=== PATIENT | female | born 1970 | race Caucasian/White ===

== ENCOUNTER 2020-01-28 15:53 | Outpatient (REF) | payer OTHER, SELFPAY ==
[2020-01-28 16:34] LABS: COVID-19 Test Negative (Negative)
== END 2020-01-28 15:54 | disposition home or self-care (01) ==
LOC: HO.LAB 15:53
PROVIDERS: Visit Provider Internal Medicine
DX: Z20.828 Contact with and (suspected) exposure to other viral communicable diseases (principal)
CPT/HCPCS: 87635

== ENCOUNTER 2020-02-06 10:41 | Outpatient (REF) | payer OTHER, SELFPAY ==
[2020-02-06 11:00] LABS: COVID-19 Test Negative (Negative)
== END 2020-02-06 10:42 | disposition home or self-care (01) ==
LOC: HO.LAB 10:41
PROVIDERS: Visit Provider Internal Medicine
DX: Z20.828 Contact with and (suspected) exposure to other viral communicable diseases (principal)
CPT/HCPCS: 87635

== ENCOUNTER 2020-04-01 13:28 | Outpatient (REF) | payer OTHER, SELFPAY ==
--- NOTE | 2020-04-01 13:33 | MM_ITS ---
EXAMINATION: MM SCREENING DIGITAL BREAST TOMOSYNTHESIS, BILATERAL CLINICAL INFORMATION: Screening. Asymptomatic. The lifetime risk of breast cancer based on the Tyrer-Cuzick Model is 8%. COMPARISON: Mammography: 04/26/2015, 04/26/2014 TECHNIQUE: Digital breast tomosynthesis is performed in both the craniocaudal and mediolateral oblique views along with computer-aided detection (CAD). Synthesized 2D images are generated from the tomosynthesis. FINDINGS: There are scattered areas of fibroglandular density (ACR BI-RADS breast composition Category b). There are no significant masses, abnormal calcifications, or other abnormalities. The axilla and skin contours are unremarkable. No significant changes. MM/MM tomosynthesis screening BI IMPRESSION: No significant changes from prior exams. ASSESSMENT: BI-RADS 1: Negative RECOMMENDATION: Routine annual mammography screening. This patient's information was entered into a reminder system with a target due date for their next mammogram.
== END 2020-04-01 13:29 | disposition home or self-care (01) ==
LOC: HO.MAMMO 13:28
PROVIDERS: Visit Provider Obstetrics & Gynecology
DX: Z12.31 Encounter for screening mammogram for malignant neoplasm of breast (principal)
CPT/HCPCS: 77063; 77067

== ENCOUNTER → 2020-09-21 09:59 | Outpatient (BNVA) | payer OTHER, SELFPAY | PROVIDERS: Visit Provider Internal Medicine | DX: Z13.89 Encounter for screening for other disorder (principal) | CPT/HCPCS: 99202 ==

== ENCOUNTER → 2020-09-23 10:26 | Outpatient (BNVA) | payer OTHER, SELFPAY | PROVIDERS: Visit Provider Internal Medicine | DX: Z13.89 Encounter for screening for other disorder (principal) | CPT/HCPCS: 99213 ==

== ENCOUNTER 2020-09-24 06:36 | Emergency (ER) | payer OTHER, SELFPAY ==
[2020-09-24 06:43] VITALS: BP 140/62; PULSE 82; RESP 15; TEMP 36.5; O2SAT 98; BMI 86.3
--- NOTE | 2020-09-24 07:08 | ED_ITS ---
HPI - Back Pain/Injury General Chief Complaint: Back Pain/Injury Stated Complaint: back pain Time Seen by Provider: 09/24/20 06:48 Source: patient Mode of arrival: ambulatory Limitations: no limitations History of Present Illness HPI Narrative: 49-year-old female who presents emergency department for evaluation of right lower back pain, right knee numbness and right leg weakness. 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 She was working on Saturday (5 days prior to evaluation) she was at work, walking up stairs when she tripped and fell. She states she did not fall but was able to catch herself. She states that she developed immediate pain in her lower back. She describes the pain is a burning sensation which is been constant. The pain travels down the right inner thigh to the knee. She states that her right knee feels numb. She states that the pain also has a spasm component and the pain is 8/10. The patient was seen at [facility] and was started on a Medrol Dosepak. She took that for 3 days it did not seem to help her pain so she was advised to stop this medication. She has been taking naproxen and Tylenol with minimal relief of her pain. Patient states that yesterday, while going up some stairs her right leg knee was weak and gave out on her and she fell sustaining only minor injuries. The [facility] provider wanted to get an MRI however the MRI at our institution was out of order. Patient states that she continues have weakness and numbness of her right leg and her back pain is 8/10, therefore she came to the emergency department for evaluation. She denies other illness such as fever, chills, chest pain, shortness of breath, cough, abdominal pain, change in her urine. She has had no loss of bowel or bladder control. 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 Past surgical history: . 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 She denies tobacco, alcohol and drug use. Medical History (Updated 09/24/20 @ 10:51 by Kevin Kwon MD) Minerva's thyroiditis Surgical History (Updated 09/24/20 @ 06:49 by Misa Stephenson) No history of previous surgery Social History Social History Alcohol intake: never Patient Tobacco Use Status: Never used Tobacco Use of substances other than those prescribed or required for medical reasons: No Advance Directives: No Advance Directives Information Provided: No Patient : No Physical Exam Vital Signs: Vital Signs: Last Vital Signs Temp 97.7 F 09/24/20 06:43 Pulse 82 09/24/20 06:43 Resp 15 09/24/20 06:43 BP 140/62 H 09/24/20 06:43 Pulse Ox 98 09/24/20 06:43 Body Mass Index 86.3 Const: Other: Very pleasant and cooperative female, answers all questions appropriately, does not appear to be in significant distress but does have difficulty moving secondary to her back pain Orientation/consciousness: oriented to person Limitations: no limitations HENMT: Head: Yes normal to inspection, Yes normocephalic and Yes atraumatic Ears: external ears normal General nose exam: Normal external nose present Face and sinus: Yes normal facial exam Mouth: Normal oral and palatal mucosa present Throat: Yes posterior oropharynx normal Eyes: Periorbital: periorbital findings normal Eyelids: Yes eyelids normal Conjunctivae: conjunctivae normal Sclerae: sclerae normal Corneas: corneas normal Pupils: Equal, round and reactive pupils present Direct Ophthalmoscopy: normal light reflex Neck: Neck: Yes full ROM, Yes no lymphadenopathy, Yes no meningeal signs, Yes trachea midline and Yes supple Chest: Chest palpation & inspection: normal inspection of the chest and normal palpation of entire chest wall Resp: Effort & Inspection: normal respiratory effort and able to speak in complete sentences Auscultation: clear to auscultation bilaterally Cardio: Rate: regular rate Rhythm: regular rhythm Heart sounds: S1 normal heart sound present, S2 normal heart sound present and no murmurs GI: Inspection: Yes normal to inspection Palpation (GI): Soft to palpation, nontender, no guarding, not rigid and No hepatosplenomegaly present : General: Yes no CVA tenderness Back/Spine/Pelvis: Back: no CVA tenderness Cervical Spine: normal cervical lordosis Thoracic/Lumbar Spine: thoracic and lumbar spine normal to inspection, paraspinal muscle tenderness on the right in the lower lumbar, lumbar spinal tenderness at L3, at L4 and at L5 and straight leg raise positive bilateral Skin: Lesions: no lesions Rashes: no rashes Wounds: no wounds Neuro: Other: Lower extremity reflexes: able to obtain a left patellar reflex only. Patient does have some slight weakness to the right lower extremity compared to the left. General: oriented to person and no meningeal signs Cranial nerves: Yes CN's II-XII intact bilaterally and Yes Equal, round and reactive pupils present Cognition (Neuro): normal cognition Sensory Exam: other (Symmetric light touch) Extrem: General: Yes normal to inspection and Yes full ROM Psych: Appearance: well kempt Mental Status: mental status grossly normal Speech and movement: Normal speech and movement present Affect: normal af fect Attitude: cooperative Thought process: Normal thought process present Thought content: Normal thought content present Course Course Course Narrative: 49-year-old female who presents emergency department for evaluation of work-related back injury with right lower back pain with pain radiating down the right thigh with numbness of the right knee. Patient is also experiencing weakness of the right lower extremity. The patient was initially started on a Medrol Dosepak but this was discontinued. She has been taking Aleve and Flexeril with no relief of her pain. Patient's pain became worse today so she came to the emergency department for evaluation. Physical examination did reveal tenderness with palpation of her lumbar spine and lumbar paraspinal muscles. The patient did have some slight weakness of the right l ower extremity compared to the left. Patient did have positive straight leg raises bilaterally. Differential includes herniated disc, sciatica, inflammation of spinal nerves, musculoskeletal injury. 1043: The patient was treated with Toradol 30 mg IM without any relief the pain. She was then treated with with morphine 4 mg IM x2 and morphine 4 mg IV x1. She is also given Decadron 10 mg IV. The patient states that her pain has improved, her numbness and weakness is unchanged. At this time, we do not have MRI available and I did discuss this with the patient. The patient will be discharged home with a prescription for Decadron 6 mg once a day for 5 days. She was advised to take Tylenol for pain and for pain not relieved by Tylenol she was given a prescription for morphine 15 mg tablets, 1 pill every 4-6 hours as needed for pain. She was given printed and verbal instructions on back pain and discharged home. I did tell or for symptoms got worse, she developed loss of bowel or bladder control that she should go to an emergency department and has the ability to do an urgent MRI. At this time, our MRI scanner is not functioning and may not be repaired until early next week. Discharge Plan Discharge Clinical Impression: Lumbar back pain with radiculopathy affecting right lower extremity Patient Disposition: Home, Self-Care Instructions: Lumbar Radiculopathy (ED) Additional Instructions: Back Pain Discharge Instructions: You received Decadron (dexamethasone) 10 mg IV in the emergency department Tomorrow morning start Decadron (dexamethasone) 6 mg once a day for 5 days. This is a strong, steroid, anti-inflammatory pain medication. Do not take any [id number]-[id number] anti-inflammatory pain medications while you are taking Decadron such as ibuprofen, Motrin, Advil, Aleve, naproxen or aspirin. Take Tylenol(acetaminophen) 325 mg pills, 2 pills every 4 hours as needed for pain. Continue taking Flexeril (cyclobenzaprine) as prescribed by your doctor.This medication will make you sleepy, therefore do not drive or work while taking this medication. For pain not relieved by Flexeril or Tylenol take morphine 15 mg pills, 1 pill every 4-6 hours as needed for pain. This is a narcotic pain medication and can cause addiction. If your concerned about addiction do not get this medication filled or you can ask the pharmacist to give you fever pills than prescribed. Apply ice for 15 minutes to the area that hurts on your back, then apply a heating a pad on low for 15 minutes. Do this 4-6 times a day to help reduce the pain in your back. You can also try over the counter lidocaine patches as directed on the box to help with the pain. If your symptoms get worse or if you develop any new symptoms that are concerning you, call your doctor or return to the emergency department for re- evaluation. Unfortunately however, at this time are MRI is not function and you should return to emergency department that can perform an urgent MRI ([facility] in [place]). Follow up with your doctor in 2 day. Please read the other printed discharge instructions on back pain. Prescriptions: New morphine 15 mg tablet 15 mg PO Q4-6H PRN (Reason: pain) Qty: 14 RF: 0 dexamethasone 6 mg tablet 6 mg PO DAILY 5 Days Qty: 5 RF: 0
[2020-09-24] MEDS: Ketorolac Tromethamine 30 MG/ML VIAL IVPUSH (07:14)
--- NOTE | 2020-09-24 07:26 | PC.NURSE ---
seen by provider, mri machine unavailable d/t out of order. administered im toradol for pain management, will reassess for affect. pt nad in stretcher att.
[2020-09-24] MEDS: Morphine Sulfate 4 MG/ML CARTRIDGE IM ×2 (08:20→08:44)
[2020-09-24] MEDS: Morphine Sulfate 4 MG/ML CARTRIDGE IVPUSH (10:01)
== END 2020-09-24 11:39 | disposition home or self-care (01) ==
PROVIDERS: Emergency Provider Emergency Medicine Emergency Medical Services
DX: M54.16 Radiculopathy, lumbar region (principal); E06.3 Autoimmune thyroiditis; E03.9 Hypothyroidism, unspecified; Z79.899 Other long term (current) drug therapy
CPT/HCPCS: 96374; 96375; 96376; 99284; J1100; J1885; J2270

== ENCOUNTER → 2020-10-03 11:37 | Outpatient (BNVA) | payer OTHER, SELFPAY | PROVIDERS: Visit Provider Internal Medicine | DX: Z13.89 Encounter for screening for other disorder (principal) | CPT/HCPCS: 99213 ==

== ENCOUNTER → 2020-10-20 11:11 | Outpatient (BNVA) | payer OTHER, SELFPAY | PROVIDERS: Visit Provider Internal Medicine | DX: Z13.89 Encounter for screening for other disorder (principal) | CPT/HCPCS: 99213 ==

== ENCOUNTER → 2020-11-07 11:22 | Outpatient (BNVA) | payer OTHER, SELFPAY | PROVIDERS: Visit Provider Physician Assistant | DX: Z13.89 Encounter for screening for other disorder (principal) | CPT/HCPCS: 99213 ==

== ENCOUNTER 2020-11-10 11:00 | Outpatient (RCR) | payer OTHER, SELFPAY ==
--- NOTE | 2020-10-03 16:13 | MHC.PT.EP ---
[facility] [place] Office [place] Office [place] Office [address] Myles Singer [address] [phone] F: [phone] F: [phone] F: [phone] F: [phone] Physical Therapy Plan of Care Date of Evaluation: Date of Surgery: Diagnosis: LBP radiating into RLE Assessment: Pt is a 49yo F who presents with LBP radiating into RLE. She demonstrates current impairments in pain, sensation, strength, endurance, and stability. She finds improvement of symptoms with manual long-axis distraction and prone exercises. Her signs and symptoms may be consistent with lumbar radiculopathy. Her functional limitations include ambulating prolonged distances, prolonged sitting, getting in/out of the car, lifting, and sleeping. She is an excellent candidate for skilled PT services to address the listed impairments to facilitate return to pain-free PLOF. Frequency and Duration: The patient will be seen 2x/week 4 weeks Short Term Goals: Pt will be I with HEP Pt will improve hip ABD and hip ext by 1 grade RLE [facility]ci Goals: Pt will tolerate standing >1 hour with pain < 1/10 Pt will demonstrate full strength and ROM to facilitate return to pain-free ADLs Treatment Plan: Modalities to reduce pain, spasms and effusion. Manual therapy to restore motion and function. Therapeutic exercise to improve strength and flexibility. Neuromuscular re-education for posture and balance. Therapeutic activities to return to functional activities of daily living. Electronically signed by: Allyn Santos, PT, DPT Please sign and return to therapist. Thank you for your referral.
--- NOTE | 2020-10-03 16:14 | MHC.PT.EP ---
[facility] [place] Office [place] Office [place] Office [address] Myles Singer [address] [phone] F: [phone] F: [phone] F: [phone] F: [phone] Physical Therapy Plan of Care Date of Evaluation: Date of Surgery: Diagnosis: LBP radiating into RLE Assessment: Pt is a 49yo F who presents with LBP radiating into RLE. She demonstrates current impairments in pain, sensation, strength, endurance, and stability. She finds improvement of symptoms with manual long-axis distraction and prone exercises. Her signs and symptoms may be consistent with lumbar radiculopathy. Her functional limitations include ambulating prolonged distances, prolonged sitting, getting in/out of the car, lifting, and sleeping. She is an excellent candidate for skilled PT services to address the listed impairments to facilitate return to pain-free PLOF. Frequency and Duration: The patient will be seen 2x/week 4 weeks Short Term Goals: Pt will be I with HEP Pt will improve hip ABD and hip ext by 1 grade RLE Mcc Goals: Pt will tolerate standing >1 hour with pain < 1/10 Pt will demonstrate full strength and ROM to facilitate return to pain-free ADLs Treatment Plan: Modalities to reduce pain, spasms and effusion. Manual therapy to restore motion and function. Therapeutic exercise to improve strength and flexibility. Neuromuscular re-education for posture and balance. Therapeutic activities to return to functional activities of daily living. Electronically signed by: Allyn Santos, PT, DPT Please sign and return to therapist. Thank you for your referral.
--- NOTE | 2020-10-04 09:57 | MHC.PT.EP ---
[facility] [place] Office [place] Office [place] Office [address] Myles Singer [address] [phone] F: [phone] F: [phone] F: [phone] F: [phone] Physical Therapy Plan of Care Date of Evaluation: Date of Surgery: Diagnosis: LBP radiating into RLE Assessment: Pt is a 49yo F who presents with LBP radiating into RLE. She demonstrates current impairments in pain, sensation, strength, endurance, and stability. She finds improvement of symptoms with manual long-axis distraction and prone exercises. Her signs and symptoms may be consistent with lumbar radiculopathy. Her functional limitations include ambulating prolonged distances, prolonged sitting, getting in/out of the car, lifting, and sleeping. She is an excellent candidate for skilled PT services to address the listed impairments to facilitate return to pain-free PLOF. Frequency and Duration: The patient will be seen 2x/week 4 weeks Short Term Goals: Pt will be I with HEP Pt will improve hip ABD and hip ext by 1 grade RLE [facility] Goals: Pt will tolerate standing >1 hour with pain < 1/10 Pt will demonstrate full strength and ROM to facilitate return to pain-free ADLs Treatment Plan: Modalities to reduce pain, spasms and effusion. Manual therapy to restore motion and function. Therapeutic exercise to improve strength and flexibility. Neuromuscular re-education for posture and balance. Therapeutic activities to return to functional activities of daily living. Electronically signed by: Allyn Santos, PT, DPT Please sign and return to therapist. Thank you for your referral.
--- NOTE | 2020-10-04 09:58 | MHC.PT.EP ---
[facility] [place] Office [place] Office [place] Office [address] Myles Singer [address] [phone] F: [phone] F: [phone] F: [phone] F: [phone] Physical Therapy Plan of Care Date of Evaluation: Date of Surgery: Diagnosis: LBP radiating into RLE Assessment: Pt is a 49yo F who presents with LBP radiating into RLE. She demonstrates current impairments in pain, sensation, strength, endurance, and stability. She finds improvement of symptoms with manual long-axis distraction and prone exercises. Her signs and symptoms may be consistent with lumbar radiculopathy. Her functional limitations include ambulating prolonged distances, prolonged sitting, getting in/out of the car, lifting, and sleeping. She is an excellent candidate for skilled PT services to address the listed impairments to facilitate return to pain-free PLOF. Frequency and Duration: The patient will be seen 2x/week 4 weeks Short Term Goals: Pt will be I with HEP Pt will improve hip ABD and hip ext by 1 grade RLE Assisted Goals: Pt will tolerate standing >1 hour with pain < 1/10 Pt will demonstrate full strength and ROM to facilitate return to pain-free ADLs Treatment Plan: Modalities to reduce pain, spasms and effusion. Manual therapy to restore motion and function. Therapeutic exercise to improve strength and flexibility. Neuromuscular re-education for posture and balance. Therapeutic activities to return to functional activities of daily living. Electronically signed by: Allyn Santos, PT, DPT Please sign and return to therapist. Thank you for your referral.
--- NOTE | 2020-10-04 10:05 | MHC.PT.EP ---
[facility] [place] Office [place] Office [address] Myles Singer [address] [phone] F: [phone] F: [phone] F: [phone] F: [phone] Physical Therapy Plan of Care Date of Evaluation: Date of Surgery: Diagnosis: LBP radiating into RLE Assessment: Pt is a 49yo F who presents with LBP radiating into RLE. She demonstrates current impairments in pain, sensation, strength, endurance, and stability. She finds improvement of symptoms with manual long-axis distraction and prone exercises. Her signs and symptoms may be consistent with lumbar radiculopathy. Her functional limitations include ambulating prolonged distances, prolonged sitting, getting in/out of the car, lifting, and sleeping. She is an excellent candidate for skilled PT services to address the listed impairments to facilitate return to pain-free PLOF. Frequency and Duration: The patient will be seen 2x/week 4 weeks Short Term Goals: Pt will be I with HEP Pt will improve hip ABD and hip ext by 1 grade RLE Mcfp Goals: Pt will tolerate standing >1 hour with pain < 1/10 Pt will demonstrate full strength and ROM to facilitate return to pain-free ADLs Treatment Plan: Modalities to reduce pain, spasms and effusion. Manual therapy to restore motion and function. Therapeutic exercise to improve strength and flexibility. Neuromuscular re-education for posture and balance. Therapeutic activities to return to functional activities of daily living. Electronically signed by: Allyn Santos, PT, DPT Please sign and return to therapist. Thank you for your referral.
--- NOTE | 2020-10-04 10:10 | MHC.PT.EP ---
[facility] [place] Office [place] Office [place] Office [address] Myles Singer [address] [phone] F: [phone] F: [phone] F: [phone] F: [phone] Physical Therapy Plan of Care Date of Evaluation: Date of Surgery: Diagnosis: LBP radiating into RLE Assessment: Pt is a 49yo F who presents with LBP radiating into RLE. She demonstrates current impairments in pain, sensation, strength, endurance, and stability. She finds improvement of symptoms with manual long-axis distraction and prone exercises. Her signs and symptoms may be consistent with lumbar radiculopathy. Her functional limitations include ambulating prolonged distances, prolonged sitting, getting in/out of the car, lifting, and sleeping. She is an excellent candidate for skilled PT services to address the listed impairments to facilitate return to pain-free PLOF. Frequency and Duration: The patient will be seen 2x/week 4 weeks Short Term Goals: Pt will be I with HEP Pt will improve hip ABD and hip ext by 1 grade RLE Correction Goals: Pt will tolerate standing >1 hour with pain < 1/10 Pt will demonstrate full strength and ROM to facilitate return to pain-free ADLs Treatment Plan: Modalities to reduce pain, spasms and effusion. Manual therapy to restore motion and function. Therapeutic exercise to improve strength and flexibility. Neuromuscular re-education for posture and balance. Therapeutic activities to return to functional activities of daily living. Electronically signed by: Allyn Santos, PT, DPT Please sign and return to therapist. Thank you for your referral.
--- NOTE | 2020-10-04 10:20 | MHC.PT.EP ---
[facility] [place] Office [place] Office [address] Myles Singer [address] [phone] F: [phone] F: [phone] F: [phone] F: [phone] Physical Therapy Plan of Care Date of Evaluation: Date of Surgery: Diagnosis: LBP radiating into RLE Assessment: Pt is a 49yo F who presents with LBP radiating into RLE. She demonstrates current impairments in pain, sensation, strength, endurance, and stability. She finds improvement of symptoms with manual long-axis distraction and prone exercises. Her signs and symptoms may be consistent with lumbar radiculopathy. Her functional limitations include ambulating prolonged distances, prolonged sitting, getting in/out of the car, lifting, and sleeping. She is an excellent candidate for skilled PT services to address the listed impairments to facilitate return to pain-free PLOF. Frequency and Duration: The patient will be seen 2x/week 4 weeks Short Term Goals: Pt will be I with HEP Pt will improve hip ABD and hip ext by 1 grade RLE Mcfp Goals: Pt will tolerate standing >1 hour with pain < 1/10 Pt will demonstrate full strength and ROM to facilitate return to pain-free ADLs Treatment Plan: Modalities to reduce pain, spasms and effusion. Manual therapy to restore motion and function. Therapeutic exercise to improve strength and flexibility. Neuromuscular re-education for posture and balance. Therapeutic activities to return to functional activities of daily living. Electronically signed by: Allyn Santos, PT, DPT Please sign and return to therapist. Thank you for your referral.
--- NOTE | 2020-11-10 13:11 | MHC.PT.DC ---
[facility] [place] Office [place] Office [place] Office [address] Myles Singer [address] [phone] F: [phone] F: [phone] F: [phone] F: [phone] Physical Therapy Discharge Report Diagnosis: LBP radiating into RLE Date of Surgery: Date of Evaluation: 10/03/20 Date of Discharge: Treatments to Date: 10 Cancellations to Date: 0 No Shows to Date: 0 Discharge Status: Achieved Goals Improved Function Independent with HEP Discharge Summary: Pt has demonstrated significant improvements in LBP. She has improved ROM, core strength and hip stability and has improved proper body mechanics throughout functional activities. She is able to perform ADLs pain-free and she has improved her standing tolerance at work. At this point her LBP has improved and she is more limited by B knees. She is being D/C to HEP for low back at this time and is recommended to follow-up with her regarding B knee pain. Electronically signed by: Allyn Santos, PT, DPT Please sign and return to therapist. Thank you for your referral.
== END 2020-11-10 13:13 | disposition home or self-care (01) ==
LOC: HO.PT 11:00
PROVIDERS: Visit Provider Internal Medicine
DX: M54.9 Dorsalgia, unspecified (principal); R20.0 Anesthesia of skin; M25.361 Other instability, right knee
CPT/HCPCS: 97012; 97110; 97140; 97162; 97530

== ENCOUNTER → 2020-11-21 13:08 | Outpatient (BNVA) | payer OTHER, SELFPAY | PROVIDERS: Visit Provider Internal Medicine | DX: Z13.89 Encounter for screening for other disorder (principal) | CPT/HCPCS: 99213 ==

== ENCOUNTER → 2020-12-12 14:59 | Outpatient (BNVA) | payer OTHER, SELFPAY | PROVIDERS: Visit Provider Internal Medicine | DX: Z76.89 Persons encountering health services in other specified circumstances (principal) | CPT/HCPCS: 73562; 99213 ==

== ENCOUNTER → 2021-01-03 12:59 | Outpatient (BNVA) | payer OTHER, SELFPAY | PROVIDERS: Visit Provider Internal Medicine | DX: Z13.89 Encounter for screening for other disorder (principal) | CPT/HCPCS: 99213 ==

== ENCOUNTER 2021-01-27 12:00 | Outpatient (RCR) | payer OTHER, SELFPAY ==
--- NOTE | 2020-11-22 12:16 | MHC.PT.EP ---
[facility] [place] [facility] [place] [facility] [place] [facility] [address] Myles Singer [address] [phone] F: [phone] F: [phone] F: [phone] F: [phone] Physical Therapy Plan of Care Date of Evaluation: Date of Surgery: Diagnosis: RIGHT KNEE PAIN/ NEUROPATHY, LBP Assessment: 50 YO FEMALE REF TO PT FOR Rt KNEE PAIN S/P LB INJURY AT WORK 09/20/20. 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 OBJECTIVE FINDINGS: (+) PELVIC ASYMM CREATING LLI ON Rt KNEE; DECR FLEXIB IN SHANE HIP ROTATORS/ITB/ POSTERIOR CHAIN, DECR STRENGTH IN GLUTES/ VMO; (+) PF IRRITABILITY, AND PAIN AND NUMBNESS IN Rt INFRAPAT REGION. FUNCTIONAL LIMITATIONS INCLUDE DIFFIC SLEEPING, LIMITED FUNCT SQUAT, DECR LAVINIA TO INCR GAIT/ SITTING/ STANDING, AND LIMITED W STAIR MGMT- FEARFUL OF Rt KNEE BUCKLING. Pt IS A GREAT PT CANDIDATE TO ADDRESS THE ABOVE FINDINGS. Frequency and Duration: The patient will be seen 2xWK x 4 WKS Short Term Goals: Pt'S Rt KNEE PAIN AND SXS DECR TO 2/10 W REG ADLs / WORK IN 2 WKS Pt INCR HIP ROTATOR AND ITB FLEXIB IN 2 WKS Pt W IMPROV FUNCT SQUAT MECH IN 2 WKS Retirement Goals: Pt INDEP HEP AND SX MGMT STRATEGIES IN 4 WKS Pt'S LEFT SCORE IMPROVED BY 10 POINTS ( EVIDENT W INCR FUNCT MOB LAVINIA ) IN 4 WKS Treatment Plan: Modalities to reduce pain, spasms and effusion. Manual therapy to restore motion and function. Therapeutic exercise to improve strength and flexibility. Neuromuscular re-education for posture and balance. Therapeutic activities to return to functional activities of daily living. Electronically signed by: Shanon ConklinPT Please sign and return to therapist. Thank you for your referral.
--- NOTE | 2021-01-27 14:00 | MHC.PT.DC ---
[facility] [place] Office [place] Office [place] Office [address] Myles Singer [address] [phone] F: [phone] F: [phone] F: [phone] F: [phone] Physical Therapy Discharge Report Diagnosis: RIGHT KNEE PAIN/ LBP Date of Surgery: Date of Evaluation: 11/22/20 Date of Discharge: 01/27/21 Treatments to Date: 15 Cancellations to Date: 0 No Shows to Date: 1 Discharge Status: Achieved Goals Improved Function Independent with HEP Discharge Summary: Pt HAS PROGRESSED WELL IN PT- SHE PRESENTED TODAY WITH 0/10 PAIN; SHE IS INDEP AND COMPLIANT W HER HEP- Pt DEMON IMPROVED STRENGTH IN HER LEs AND CORE REGION. Pt MET HER PT GOALS- HER LEFI SCAORE AT D/C IS 62/80 AND AT EVAL 48/80. Electronically signed by: Shanon Conklin,PT Please sign and return to therapist. Thank you for your referral.
== END 2021-01-27 14:01 | disposition home or self-care (01) ==
LOC: HO.PT 12:00
PROVIDERS: Visit Provider Physician Assistant Medical
DX: M54.5 Low back pain (principal); M25.561 Pain in right knee
CPT/HCPCS: 97014; 97110; 97112; 97140; 97162; 97530

== ENCOUNTER 2021-04-03 08:48 | Outpatient (REF) | payer OTHER, SELFPAY ==
[2021-04-03 10:37] LABS: T4 Thyroxine 8.5 ug/dL (4.5-12.0); Thyroid Stimulating Hormone 0.34 uIU/mL (0.32-4.0)
== END 2021-04-03 08:49 | disposition home or self-care (01) ==
LOC: HO.LAB 08:48
PROVIDERS: Visit Provider Pediatrics Pediatric Endocrinology
DX: E03.9 Hypothyroidism, unspecified (principal)
CPT/HCPCS: 36415; 84436; 84443

== ENCOUNTER 2021-08-02 14:13 | Outpatient (REF) | payer OTHER, SELFPAY ==
[2021-08-02 15:21] LABS: TSH reflex Free T4 20.02 uIU/mL (0.32-4.0)
[2021-08-02 16:08] LABS: Free T4 (Free Thyroxine) 1.03 ng/dL (0.71-1.85)
== END 2021-08-02 14:14 | disposition home or self-care (01) ==
LOC: HO.LAB 14:13
PROVIDERS: Visit Provider Pediatrics Pediatric Endocrinology
DX: E03.9 Hypothyroidism, unspecified (principal)
CPT/HCPCS: 36415; 84439; 84443

== ENCOUNTER 2021-08-25 10:20 | Outpatient (REF) | payer OTHER, SELFPAY ==
--- NOTE | ~2021-08-25 | MM_ITS ---
EXAMINATION: MM SCREENING DIGITAL BREAST TOMOSYNTHESIS, BILATERAL CLINICAL INFORMATION: Screening. Asymptomatic. The lifetime risk of breast cancer based on the Tyrer-Cuzick Model is 12%. COMPARISON: Mammography: 04/01/2020, 04/26/2015 TECHNIQUE: Digital breast tomosynthesis is performed in both the craniocaudal and mediolateral oblique views along with computer-aided detection (CAD). Synthesized 2D images are generated from the tomosynthesis. FINDINGS: There are scattered areas of fibroglandular density (ACR BI-RADS breast composition Category b). There are no significant masses, abnormal calcifications, or other abnormalities. Parenchymal pattern is similar to prior exams. No developing density. No significant changes. The axilla are unremarkable. The skin contours are smooth. MM/MM tomosynthesis screening BI IMPRESSION: No mammographic evidence of malignancy. ASSESSMENT: BI-RADS 1: Negative RECOMMENDATION: Routine annual mammography screening. This patient's information was entered into a reminder system with a target due date for their next mammogram.
== END 2021-08-25 10:21 | disposition home or self-care (01) ==
LOC: HO.MAMMO 10:20
PROVIDERS: Visit Provider Advanced Practice Midwife
DX: Z12.31 Encounter for screening mammogram for malignant neoplasm of breast (principal)
CPT/HCPCS: 77063; 77067

== ENCOUNTER 2021-09-26 15:29 | Outpatient (REF) | payer OTHER, SELFPAY ==
--- NOTE | ~2021-09-26 | US_ITS ---
EXAMINATION: US THYROID CLINICAL INFORMATION: Multinodular goiter. Follow up nodules. COMPARISON: Ultrasound soft tissue head/neck thyroid dated 10/19/2019. TECHNIQUE: Linear transducer grayscale and color Doppler examination with attention to the region of the thyroid. FINDINGS: SIZE: Measurements of the thyroid lobes and nodules are given in sagittal, anteroposterior and transverse dimensions respectively. Right Thyroid Lobe: 5.1 x 1.4 x 1.2 cm, volume 4.5 mL. Previously 3.4 x 0.7 x 0.9 cm, volume 1.1 mL. Parenchyma: The gland echotexture is homogeneous. Thyroid vascularity is normal. Left Thyroid Lobe: 4.3 x 1.0 x 1.4 cm, volume 3.2 mL. Previously 3.4 x 0.9 x 1.3 cm, volume 2.0 mL. Parenchyma: The gland echotexture is homogeneous. Thyroid vascularity is normal. Isthmus: 0.3 cm in maximum AP dimension. Previously 0.2 cm. Estimated total number of nodules greater than or equal to 1 cm: 0. Geomagnetist nodules are described as follows: 1. Location: Left mid. Size: 0.8 x 0.3 x 0.5 cm, volume 0.06 mL. Previously: 0.6 x 0.3 x 0.4 cm, volume 0.04 mL. Nodule characteristics: Composition: Mixed cystic and solid (1). Echogenicity: Isoechoic (1). Shape: Not taller than wide (0). Margins: Smooth (0). Echogenic Foci: None (0). ACR TI-RADS total points: 2 ACR TI-RADS category: 2 Significant change in size (>/= 20% in 2 dimensions and minimal increase of 2 mm or 50% or greater increase in volume): Change in features: Change in ACR TI-RADS risk category: NODES: No lymphadenopathy is seen in the tissue surrounding the thyroid gland. US/US thyroid IMPRESSION: Small thyroid gland. No appreciable change in solitary left thyroid nodule. ACR TI-RADS RECOMMENDATION REFERENCE: Ultrasound-guided fine-needle aspiration, followup ultrasound, no further follow up. * TR1 (0 point) and TR 2 (2 points): No FNA or follow up * TR3 (3 points): FNA if more than or equal to 2.5 cm in maximum dimension, followup ultrasound in 1, 3 and 5 years if 1.5 to 2.4 cm in maximum dimension. * TR4 (4-6 points): FNA if more than or equal to 1.5 cm in maximum dimension, followup ultrasound in 1, 2, 3 and 5 years if 1 to 1.4 cm in maximum dimension. * TR5 (more than or equal to 7 points): FNA if more than or equal to 1 cm in maximum dimension, followup ultrasound every year for 5 years if 0.5 to 0.9 cm in maximum dimension. * TR3, TR4 or TR5 nodules that are below the size threshold for follow up receive no follow up.
== END 2021-09-26 15:30 | disposition home or self-care (01) ==
LOC: HO.US 15:29
PROVIDERS: Visit Provider Pediatrics Pediatric Endocrinology
DX: E04.2 Nontoxic multinodular goiter (principal)
CPT/HCPCS: 76536

== ENCOUNTER 2021-11-03 12:50 | Outpatient (REF) | payer OTHER, SELFPAY ==
[2021-11-03 14:28] LABS: TSH reflex Free T4 3.35 uIU/mL (0.32-4.0)
== END 2021-11-03 12:51 | disposition home or self-care (01) ==
LOC: HO.LAB 12:50
PROVIDERS: Visit Provider Pediatrics Pediatric Endocrinology
DX: E03.9 Hypothyroidism, unspecified (principal)
CPT/HCPCS: 36415; 84443

== ENCOUNTER → 2022-02-01 13:05 | Outpatient (RCR) | payer OTHER, SELFPAY ==
[2020-03-08 15:14] LABS: COVID-19 Test Negative (Negative)
[2020-03-15 14:46] LABS: COVID-19 Test Negative (Negative)
[2020-04-01 13:22] LABS: SARS-COV-2 PCR UMBRL Not Detected
[2020-04-07 12:26] LABS: SARS-COV-2 PCR UMBRL Not Detected
[2020-04-14 10:31] LABS: SARS-COV-2 PCR UMBRL Not Detected
[2020-04-21 09:24] LABS: SARS-COV-2 PCR UMBRL Not Detected
[2020-04-28 13:32] LABS: SARS-COV-2 PCR UMBRL Not Detected
[2020-05-06 11:06] LABS: SARS-COV-2 PCR UMBRL NEGATIVE
== END | disposition home or self-care (01) ==
LOC: HO.EMPCOV 03-08 14:10
PROVIDERS: Visit Provider Internal Medicine
DX: Z20.828 Contact with and (suspected) exposure to other viral communicable diseases (principal)
CPT/HCPCS: 36415; 87635; C9803; U0003

== ENCOUNTER 2023-04-22 08:00 | Outpatient (REF) | payer OTHER, SELFPAY ==
--- NOTE | ~2023-04-22 | MM_ITS ---
EXAMINATION: MM SCREENING DIGITAL BREAST TOMOSYNTHESIS, BILATERAL CLINICAL INFORMATION: Screening. Asymptomatic. COMPARISON: Mammography: 08/25/2021, 04/01/2020, 04/26/2015, 04/26/2014, and dating back to 2011. TECHNIQUE: Digital breast tomosynthesis is performed in both the craniocaudal and mediolateral oblique views along with computer-aided detection (CAD). Synthesized 2D images are generated from the tomosynthesis. FINDINGS: There are scattered areas of fibroglandular density (ACR BI-RADS breast composition Category b). There are no suspicious masses, suspicious grouped calcifications, or areas of architectural distortion in either breast. Unchanged parenchymal asymmetry in the outer posterior right breast. The parenchymal pattern is stable from prior exams. No skin or axillary abnormalities. MM/MM tomosynthesis screening BI IMPRESSION: No mammographic evidence of malignancy. ASSESSMENT: BI-RADS BI-RADS 1 - Negative RECOMMENDATION: Routine annual mammography screening. 1 year F/U This examination should not preclude the clinical evaluation of a suspicious palpable abnormality. This patient's information was entered into a reminder system with a target due date for their next mammogram.
== END 2023-04-22 08:01 | disposition home or self-care (01) ==
LOC: HO.MAMMO 08:00
PROVIDERS: Visit Provider Advanced Practice Midwife
DX: Z12.31 Encounter for screening mammogram for malignant neoplasm of breast (principal)
CPT/HCPCS: 77063; 77067

== ENCOUNTER → 2023-04-22 08:00 | Outpatient (BNV) | payer OTHER, SELFPAY | PROVIDERS: Visit Provider Radiology Diagnostic Radiology | DX: Z12.31 Encounter for screening mammogram for malignant neoplasm of breast (principal) | CPT/HCPCS: 77063; 77067 ==

== ENCOUNTER 2023-11-11 07:20 | Outpatient (AMB) | payer OTHER, SELFPAY ==
[2023-11-11 07:41] VITALS: BP 122/80; BMI 40.3
--- NOTE | 2023-11-11 07:41 | MHC.PC.OV ---
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: No Accompanied by: Self / Same As Patient Allergies erythromycin base [Erythromycin Base] Allergy (Mild, Verified 11/11/23 07:46) Rash Medication List - Last Reconciled 11/11/23 by Rowena Killian MD levothyroxine 150 mcg PO DAILY Tobacco use date assessed: 11/11/23 Dental Screening Dental Screen Date: 11/11/23 Did you have a dental visit in the last 12 months?: Yes Did you have a dental problem in the last 6 months where you did not have access to dental care?: No Was dental information given to patient?: Patient has dentist HPI HPI Comments History of Present Illness Details This is a 53-year-old female with morbid obesity that comes for her physical exam. Mammogram done 2023 was normal. Last Pap smear was a while ago and needs a referral. Has never had a colonoscopy but will prefer Cologuard. She is morbidly obese with a BMI of 40.3 and exercise 3 times a week was advised to do more diet and exercise. Complains of bilateral knee pain secondary to osteoarthritis and would like to see Rheumatology. [facility] Medical History (Updated 11/11/23 @ 08:05 by Rowena Killian MD) Minerva's thyroiditis Surgical History History of Family History Mother No problems noted. Father Esophageal cancer Family/Other Substance use disorder Social History Housing: House Alcohol intake: never Patient Tobacco Use Status: Never used Tobacco e-Cigarette/Vaping Use: Never Used Second Hand Smoke Exposure: No service: No Current occupational status: employed Current occupational exposures/hazards: No Cognitive needs: No Hearing needs: No Vision needs: Yes Questionnaire PHQ-9 Over the last 2 weeks, how often have you been bothered by any of the following problems? 1. Little interest or pleasure in doing things: not at all 2. Feeling down, depressed, or hopeless: not at all 3. Trouble falling or staying asleep, or sleeping too much: not at all 4. Feeling tired or having little energy: not at all 5. Poor appetite or overeating: not at all 6. Feeling bad about yourself - or that you are a failure or have let yourself or your family down: not at all 7. Trouble concentrating on things, such as reading the newspaper or watching television: not at all 8. Moving or speaking so slowly that other people could have noticed. Or the opposite - being so fidgety or restless that you have been moving around a lot more than usual: not at all 9. Thoughts that you would be better off or of hurting yourself in some way: not at all Total score: 0 Depression Screening Interpretation: Negative Depression Screening Done: Yes 35355 - PHQ-9 Billing: Yes Source: Developed by Drs. Jesus Dalton, Yahaira Shane, Nathan Harrison and colleagues, with an educational ne from [employer]. Thrive Questionnaire Date Thrive assessed: 11/11/23 I am a: Patient What is your living situation today?: I have a steady place to live Within the past 12 months, did the food you bought not last and you didn't have the money to get more?: Never true Within the past 12 months, did you worry whether your food would run out before you got money to buy more?: Never true Do you have trouble paying for medicines?: No Do you have trouble getting transportation to medical appointments?: No Do you have trouble paying your heating and electricity bill?: No Do you have trouble taking care of your child, family member or friend?: No Do you have trouble with day-to-day activities such as bathing, preparing meals, shopping, managing finances, etc.?: No Are you currently unemployed and looking for a job?: No Are you interested in more education?: No Please select the resources that you would like help with: None Currently or been in a relationship where the following occur: No concerns reported THRIVE Score: 0 AUDIT C Alcohol Use Questionnaire (AUDIT-C) 1. How often do you have a drink containing alcohol?: Never Total Score: 0 Score Reviewed/Action Taken: No CARMEN-7 AMB Questionnaire CARMEN-7 Date CARMEN - 7 assessed: 11/11/23 Feeling nervous, anxious, or on edge: 0 = Not at all Not being able to stop or control worryin = Not at all Worrying too much about different things: 0 = Not at all Trouble relaxin = Not at all Being so restless that it is hard to sit still: 0 = Not at all Becoming easily annoyed or irritable: 0 = Not at all Feeling afraid as if something awful might happen: 0 = Not at all Total CARMEN-7 score (0-4 normal; 5-9 mild; 10-14 moderate; 15-21 severe): 0 Source: Developed by Drs. Jesus Dalton, Yahaira Shane, Nathan Harrison and colleagues, with an educational ne from [employer]. CARMEN-7 Assessment Billing CARMEN-7 Assessment Tool: CARMEN-7 Assessment 74877 Review of Systems Const All systems reviewed & are unremarkable except as noted in HPI and below Card Denies chest pain at rest, Denies chest pain with activity, Denies edema, Denies irregular heart rhythm, Denies claudication, Denies dyspnea, Denies dyspnea on exertion, Denies orthopnea, Denies paroxysmal nocturnal dyspnea and Denies slow heart rate Resp Denies cough, Denies dyspnea and Denies dyspnea on exertion GI Denies abdominal pain, Denies change in bowel habits, Denies excessive flatus, Denies nausea and Denies vomiting Denies urinary incontinence, Denies urinary hesitancy and Denies urinary urgency Musc Denies abnormal gait, Denies atrophy, Denies deformity and Denies limited range of motion Skin/Breast Denies bleeding lesions, Denies changing lesions and Denies rash Neuro Denies abnormal gait, Denies behavioral changes, Denies confusion and Denies lack of coordination Psych Denies behavioral changes and Denies confusion Physical exam (Primary Care) Vital Signs: Last Vital Signs BP 122/80 11/11/23 07:41 BMI result Body Mass Index 40.3 BMI Assessment/Plan discussion: High BMI High, discussed plan: lifestyle, weight reduction, dietary and physical activity Tobacco/Smoking Status: Tobacco use Status Tobacco use date assessed 11/11/23 11/11/23 07:48 Patient Tobacco Use Status Never used Tobacco 11/11/23 07:48 e-Cigarette/Vaping Use Never Used 11/11/23 07:48 PHQ-9: PHQ-9 Score PHQ-9: Total score 0 11/11/23 08:09 Depression Screening Interpretation: Negative Thrive Assessment: Date of Thrive Assessment Date Thrive assessed 11/11/23 11/11/23 07:48 Currently or been in a relationship where the following occur: No concerns reported Const General: No confusion Orientation/consciousness: patient oriented x3 and No confusion HENMT Head: Yes normal to inspection, Yes normocephalic and Yes atraumatic Ears: external ears normal Eyes General: appearance normal, both eyes and all related structures Eyelids: Yes eyelids normal Conjunctivae: conjunctivae normal Neck Neck: Yes normal visual inspection and Yes supple Resp Effort & Inspection: normal respiratory effort Auscultation: clear to auscultation bilaterally Cardio Jugular venous distension: no JVD Rate: regular rate Rhythm: regular rhythm Heart sounds: S1 normal heart sound present and S2 normal heart sound present GI Inspection: Yes normal to inspection Palpation (GI): Soft to palpation and nontender Auscultation: normal bowel sounds Skin General skin exam: no rashes or lesions noted Neuro General: patient oriented x3, no focal motor deficits and No confusion Extrem General: Yes full ROM Psych Appearance: grossly normal Immunizations Boostrix Tdap 2.5 Lf unit-8 mcg-5 Lf/0.5 mL intramuscular syringe Performing Provider: Rowena Killian MD [facility] Administered by: Nedra Dalton CMA on 11/11/23 08:09 Dose Route Admin Location Dispensed Lot Number Expiration Date NDC Underwriter Mortgage Loan 0.5 mL IM Left Deltoid 0.5 mL [id number] 11/11/23 00772-137-78 [employer] VIS Given Date VIS Provided VIS Publication Date 11/11/23 Single Vaccine 20 Eligibility Eligibility Date Funding Source Not [facility] Eligible 11/11/23 Private Assessment and Plan Assessment & Plan (1) Physical exam: Code(s): Z00.00 - Encounter for general adult medical examination without abnormal findings Plan: Repeat in a year. (2) Morbid obesity with BMI of 40.0-44.9, adult: Code(s): E66.01 - Morbid (severe) obesity due to excess calories; Z68.41 - Body mass index [BMI] 40.0-44.9, adult Plan: Advised to diet and exercise. BMI goal is less than 30. (3) Bilateral anterior knee pain: Code(s): M25.561 - Pain in right knee; M25.562 - Pain in left knee Plan: Referred to rheumatology. Orders: Orders Rubeola IgG (Measles) Today Z23 - Encounter for immunization Thyroid Stimulating Hormone Today E06.3 - Autoimmune thyroiditis Lipid Panel Today E66.01 - Morbid (severe) obesity due to excess calories, E78.5 - Hyperlipidemia, unspecified, Z68.41 - Body mass index [BMI] 40.0-44.9, adult T Spot TB Today Z11.1 - Encounter for screening for respiratory tuberculosis Rubella IgG Antibody Today Z23 - Encounter for immunization Mumps Virus IgG Antibody Today Z23 - Encounter for immunization Comprehensive [place]. Panel Fast Today E66.01 - Morbid (severe) obesity due to excess calories, Z68.41 - Body mass index [BMI] 40.0-44.9, adult TDaP Immunization Today Z23 - Encounter for immunization Referrals [facility] Referral Z12.4 - Encounter for screening for malignant neoplasm of cervix Cologuard Test E66.01 - Morbid (severe) obesity due to excess calories, Z12.11 - Encounter for screening for malignant neoplasm of colon, Z12.12 - Encounter for screening for malignant neoplasm of rectum, Z68.41 - Body mass index [BMI] 40.0-44.9, adult Rheumatology Referral M25.561 - Pain in right knee, M25.562 - Pain in left knee Medications: New levothyroxine 150 mcg PO DAILY 90 days 90 tabs 1RF Discontinued morphine Patient may request partial fill Discontinued Reason: Patient no longer taking 15 mg PO Q4-6H PRN 14 tabs 0RF pain dexamethasone Discontinued Reason: Patient Completed Course 6 mg PO DAILY 5 days 5 tabs 0RF Coding Level of Care Code New Pt Level 3 (32012) New Pt Prev Care 40-64y(60249) Diagnoses Physical exam Z00.00 Morbid obesity with BMI of 40.0-44.9, adult E66.01; Z68.41 Bilateral anterior knee pain M25.561; M25.562 Additional Codes CARMEN-7 Assessment Billing - CARMEN-7 Assessment Tool: CAREMN-7 Assessment 71272 ([id number]) Time Spent (min) 33
== END 2023-11-11 08:14 | disposition home or self-care (01) ==
PROVIDERS: PCP Internal Medicine; Visit Provider Internal Medicine
DX: Z00.00 Encounter for general adult medical examination without abnormal findings (principal); E66.01 Morbid (severe) obesity due to excess calories; Z68.41 Body mass index [BMI] 40.0-44.9, adult; Z23 Encounter for immunization; M25.561 Pain in right knee; M25.562 Pain in left knee
CPT/HCPCS: 90471; 90715; 99203; 99386

== ENCOUNTER 2023-12-19 07:27 | Outpatient (REF) | payer OTHER, SELFPAY ==
[2023-12-19 08:54] LABS: Alanine Aminotransferase 22 U/L (0-31); Albumin Level 4.1 g/dL (3.5-5.0); Alkaline Phosphatase 44 U/L (39-117); Anion Gap 11 (12-20); Aspartate Amino Transferase 25 U/L (5-31); Bilirubin Total 0.4 mg/dL (0.0-1.0); Blood Urea Nitrogen 15 mg/dL (9-16); Calcium 9.6 mg/dL (8.4-10.2); Carbon Dioxide 26 mmol/L (22-29); Chloride 108 mmol/L (96-108); Cholesterol 232 mg/dL (<200); Estimated Glomerular Filt Rate 44; Glucose Fasting 87 mg/dL (60-99); HDL Cholesterol 71 mg/dL (>40); LDL Cholesterol Calculated 142 mg/dL (<100); Potassium 4.3 mmol/L (3.3-5.1); Sodium 141 mmol/L (135-145); Total Protein 7.2 g/dL (6.5-8.0); Triglycerides 95 mg/dL (<150)
[2023-12-19 09:12] LABS: Thyroid Stimulating Hormone 38.51 uIU/mL (0.32-4.0)
[2023-12-20 16:58] LABS: Rubella IgG Antibody <0.90 Index
[2023-12-22 07:23] LABS: TS Negative Control Passed; TS Panel A 0; TS Panel B 0; TS Positive Control Passed; TSpotTB Negative (Negative)
== END 2023-12-19 07:28 | disposition home or self-care (01) ==
LOC: HO.LAB 07:27
PROVIDERS: PCP Internal Medicine; Visit Provider Internal Medicine
DX: E66.01 Morbid (severe) obesity due to excess calories (principal); Z11.1 Encounter for screening for respiratory tuberculosis; Z23 Encounter for immunization; Z68.41 Body mass index [BMI] 40.0-44.9, adult; E06.3 Autoimmune thyroiditis; E78.5 Hyperlipidemia, unspecified
CPT/HCPCS: 36415; 80053; 80061; 84443; 86481; 86735; 86762; 86765

== ENCOUNTER 2023-12-27 07:33 | Outpatient (REF) | payer OTHER, SELFPAY ==
[2023-12-27 08:40] LABS: HBc Num1 0.12 S/CO (0.00-0.79); Hepatitis B Core Antibody Nonreactive (Nonreactive)
[2023-12-27 08:51] LABS: HBS Num1 34.58 mIU/mL (0-7.99); HBsAGNum1 0.25 S/CO (0.00-0.99); Hepatitis B Surface Antigen Negative (Negative); ~Hepatitis B Surface Antibody REACTIVE (Nonreactive)
== END 2023-12-27 07:34 | disposition home or self-care (01) ==
LOC: HO.LAB 07:33
PROVIDERS: PCP Internal Medicine; Visit Provider Internal Medicine
DX: Z23 Encounter for immunization (principal)
CPT/HCPCS: 36415; 86704; 86706; 87340

== ENCOUNTER 2024-01-31 13:43 | Outpatient (AMB) | payer OTHER, SELFPAY ==
[2024-01-31 13:47] VITALS: BP 122/68; PULSE 94; O2SAT 97; BMI 40.8
--- NOTE | 2024-01-31 13:47 | A.OFFVIS_ITS ---
Vital Signs 01/31/24 13:47 Height 5 ft 9 in Weight 276 lb 7.355 oz BMI 40.8 BP 122/68 Blood Pressure Location Lt brachial Position Sitting Pulse 94 Pulse Source Pulse Oximeter Pulse Oximetry (%) 97 Oxygen Delivery Method Room Air Intake Visit Reasons: Pain in Left and Right Knee Intake Note: Patient presents today as a new patient internally referred by her PCP for bilateral anterior knee pain. General arthritic pain in hips and nodules on her fingers. She has tried phelps and Tylenol. Allergies erythromycin base [Erythromycin Base] Allergy (Mild, Verified 01/31/24 13:48) Rash Medication List - Last Reconciled 01/31/24 by Polina Hernandez MD celecoxib (Celebrex) 200 mg PO DAILY 90 days levothyroxine 175 mcg PO DAILY 90 days HPI Comments Details: Patient is a 53-year-old female with hypothyroidism who presents for evaluation of bilateral knee pain. Patient states that she had a work accident about a year ago where she fell and injured her back. She has been through several months of physical therapy and at the beginning of this year was starting to notice new onset knee pain. Denies any trauma to the knees. By report she has sometimes difficulty walking up an especially down the stairs. She feels like she has to hold onto the rales because she feels unstable at times. The knees are sometimes accompanied with swelling but this is self-limited. She says that ibuprofen and Tylenol go a long way and she is able to get 24 hour relief with 1 tablet of 400 mg of ibuprofen. Denies prolonged morning stiffness. [facility] Medical History (Updated 01/31/24 @ 14:25 by Polina Hernandez MD) Knee osteoarthritis Minerva's thyroiditis Surgical History History of Family History Mother No problems noted. Father Esophageal cancer Family/Other Substance use disorder Social History Housing: House Alcohol intake: never Patient Tobacco Use Status: Never used Tobacco e-Cigarette/Vaping Use: Never Used Second Hand Smoke Exposure: No service: No Current occupational status: employed Current occupational exposures/hazards: No Cognitive needs: No Hearing needs: No Vision needs: Yes Review of Systems Const Details: Review of Systems Constitutional: Denies fever, chills, weight loss ENT: Denies vision changes, eye pain or eye redness, dental caries, dry mouth GI: Denies nausea, vomiting, diarrhea, abdominal pain, change in BM Pulm: Denies SOB, DENIS, hemoptysis, wheezing Cards: Denies chest pain, palpitations Skin: Denies Raynaud's, rash, nail changes, photosensitivity, 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 ?Gait normal. Constitutional Mucous membranes pink and moist patient alert and cooperative HEENT Conjunctiva and sclera clear. ?Pupils equal round and reactive to light. ?No lymphadenopathy. ?Normal dentition. Respiratory System Normal respiratory effort and able to speak in complete sentences. ?Clear to auscultation bilaterally. ?No crackles, rales, rhonchi, wheezes heard. Cardiac System Regular rate and rhythm. ?S1 and S2 heard no murmurs. ?Radial pulses intact bilaterally MSK No deformity, swelling, abnormalities noted to bilateral hands. ?No evidence of synovitis. ?Able to move all joints with full range of motion, without limitation. Hands:.??Normal pain-free range of motion without tenderness, swelling, increased warmth or erythema. 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 Heberden's nodes noted to scattered DIPs. Wrists: Normal pain-free range of motion without tenderness, swelling, increased warmth or erythema. Elbows: Full range of motion without pain. No tenderness, weakness, swelling, increased warmth or erythema. Shoulders: Full range of motion without pain. No tenderness, weakness, swelling, increased warmth or erythema. Hips: Full range of motion without pain. Hip bursa:.??No tenderness. Knees:.???Normal pain-free range of motion without tenderness, swelling, increased warmth or erythema.? No effusion however there is bilateral knee crepitations right more than left. Ankles:.??Normal pain-free range of motion without tenderness, swelling, increased warmth or erythema. Feet:.??Normal pain-free range of motion without tenderness, swelling, increased warmth or erythema. Tender points:??No tenderness to digital palpation at the occiput, trapezius, second rib, lateral epicondyle, knees, greater trochanter bilaterally, and left gluteal. Results Reviewed Results Reviewed: Laboratory Tests 12/19/23 07:42 Sodium 141 Potassium 4.3 Chloride 108 Carbon Dioxide 26 BUN 15 Creatinine 1.28 AST 25 ALT 22 No imaging noted in chart. Assessment & Plan Assessment & Plan (1) Knee osteoarthritis: Code(s): M17.9 - Osteoarthritis of knee, unspecified Category: Medical Qualifiers: Osteoarthritis type: primary Laterality: bilateral Qualified Code(s): M17.0 - Bilateral primary osteoarthritis of knee Plan: #Bilateral knee OA Patient with bilateral knee pain which is likely consistent with knee OA. Had a discussion about the treatment options including intra-articular steroid injection, viscosupplementation, Celebrex, and glucosamine chondroitin supplementation. Patient is interested in getting viscosupplementation. Information pamphlet given We will also give a trial of Celebrex 200 mg daily. Plan I spent 30 minutes reviewing the record and labs, seeing the patient, discussing the treatment plan and documenting in the medical record ? For next visit: * Review x-rays * Evaluate Celebrex trial * Make decision about viscosupplementation Orders: Orders XR knee standing BI Today M25.561 - Pain in right knee, M25.562 - Pain in left knee XR knee RT 3V Today M25.561 - Pain in right knee, M25.562 - Pain in left knee XR knee LT 3V Today M25.561 - Pain in right knee, M25.562 - Pain in left knee Medications: New celecoxib (Celebrex) 200 mg PO DAILY 90 caps 0RF 90 days M17.9 - Osteoarthritis of knee, unspecified Coding Level of Care Code New Pt Level 3 (12986) Diagnoses Primary osteoarthritis of both knees M17.0 Osteoarthritis type: primary Laterality: bilateral
== END 2024-01-31 14:19 | disposition home or self-care (01) ==
PROVIDERS: PCP Internal Medicine; Visit Provider Student in an Organized Health Care Education/Training Program
DX: M17.0 Bilateral primary osteoarthritis of knee (principal)
CPT/HCPCS: 99203

== ENCOUNTER → 2024-01-31 13:43 | Outpatient (BNVA) | payer OTHER, SELFPAY | PROVIDERS: PCP Internal Medicine; Visit Provider Student in an Organized Health Care Education/Training Program ==

== ENCOUNTER 2024-02-25 14:20 | Outpatient (AMB) | payer OTHER, SELFPAY ==
[2024-02-25 14:31] VITALS: BP 120/76; BMI 41.2
--- NOTE | 2024-02-25 14:31 | A.OFFVIS_ITS ---
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 She has a partner and things are good. Her 4 children are growing up in her doing very well. She is on levothyroxine that now she is getting through her primary care provider and she is on Celebrex for arthritic issues. She gets her yearly mammograms. COUNTS INCLUDE 234 BEDS AT THE [facility] Medical History Knee osteoarthritis Minerva's thyroiditis Surgical History History of Family History Mother No problems noted. Father Esophageal cancer Family/Other Substance use disorder Social History Housing: House Alcohol intake: never Patient Tobacco Use Status: Never used Tobacco e-Cigarette/Vaping Use: Never Used Second Hand Smoke Exposure: No service: No Current occupational status: employed Current occupational exposures/hazards: No Cognitive needs: No Hearing needs: No Vision needs: Yes Female Reproductive History Menstrual Age of Menarche: 11 control method: none Total pregnancies: 6 Full term: 4 History of abnormal pap smear: No (2018 neg per patient) Date of Mammogram: 04/22/23 (negative) Physical Exam Vital Signs: Last Vital Signs BP 120/76 02/25/24 14:31 BMI result Body Mass Index 41.2 Const General: healthy appearing, comfortable, no acute distress, well developed and alert Nutritional Appearance: average body habitus Orientation/consciousness: patient oriented x3 Limitations: no limitations HEENT Head: Yes normocephalic Neck Neck: Yes normal visual inspection Chest Chest palpation & inspection: normal inspection of the chest Breast/axilla inspection: normal inspection of the breasts and normal inspection of the axillae Breast/axilla palpation: normal palpation of the breasts and normal palpation of the axillae Resp Effort & Inspection: normal respiratory effort GI Inspection: Yes normal to inspection, No Abdominal wall edema and No distended Palpation (GI): Soft to palpation and nontender Other: External exam normal limits vagina pink and moist cervix is closed with small pinpoint os, scant clear healthy appearing mucus. Cervix tightly closed mobile nontender uterus on palpable but not enlarged adnexa not enlarged nontender, good tone w Kegel General: Yes bladder normal to palpation External Female Exam: normal external appearance and normal appearance of the urethra Speculum Exam - Vagina: normal appearance of the vagina, normal palpation and normal vaginal discharge Speculum Exam - Cervix: normal appearance of the cervix, normal palpation and nontender Bimanual exam- vagina & uterus: normal bimanual exam, normal palpation, uterine size normal, bladder normal to palpation, consistency normal, normal palpation, uterine mobility normal, uterine shape normal, No Cervical tenderness present, non-tender and no cervical motion tenderness Bimanual Exam- Adnexa, other: normal adnexae, no masses, normal and No adnexal tenderness Neuro General: patient oriented x3 Assessment & Plan Assessment & Plan (1) Screening for cervical cancer: Code(s): Z12.4 - Encounter for screening for malignant neoplasm of cervix Category: Medical (2) Morbid obesity with BMI of 40.0-44.9, adult: Code(s): E66.01 - Morbid (severe) obesity due to excess calories; Z68.41 - Body mass index [BMI] 40.0-44.9, adult Category: Medical (3) Well woman exam with routine gynecological exam: Code(s): Z01.419 - Encounter for gynecological examination (general) (routine) without abnormal findings Category: Medical (4) Hx of tubal ligation: Code(s): Z98.51 - Tubal ligation status Category: Surgical (5) Postmenopausal: Code(s): Z78.0 - Asymptomatic menopausal state Category: Medical (6) Breast cancer screening: Code(s): Z12.39 - Encounter for other screening for malignant neoplasm of breast Category: Medical Plan -----Discussed in this visit the following: healthy balanced diet, regular and consistent exercise, getting recommended health screens, doing the best she can for her particular health concerns, kegel exercises, pap smear screening and followup recommendations, mammography screening and SBE, normal changes in cycles in her life stage--- . She is up-to-date on mammograms, she has never had an abnormal Pap discussed that if this Pap is normal her next Pap 3-5 years. She works out every morning at gym before going to work things are good for her with her work and life balance. She now has a primary care provider and she also sees Rheumatology. RTC 1 year or p.r.n. Coding Level of Care Code New Pt Prev Care 40-64y(27030) Diagnoses Screening for cervical cancer Z12.4 Morbid obesity with BMI of 40.0-44.9, adult E66.01; Z68.41 Well woman exam with routine gynecological exam Z01.419 Hx of tubal ligation Z98.51 Postmenopausal Z78.0 Breast cancer screening Z12.39
== END 2024-02-25 15:23 | disposition home or self-care (01) ==
PROVIDERS: PCP Internal Medicine; Visit Provider Advanced Practice Midwife
DX: Z01.419 Encounter for gynecological examination (general) (routine) without abnormal findings (principal); Z12.4 Encounter for screening for malignant neoplasm of cervix; E66.01 Morbid (severe) obesity due to excess calories; Z68.41 Body mass index [BMI] 40.0-44.9, adult; Z98.51 Tubal ligation status; Z78.0 Asymptomatic menopausal state; Z12.39 Encounter for other screening for malignant neoplasm of breast
CPT/HCPCS: 99386

== ENCOUNTER 2024-02-25 14:20 | Outpatient (REF) | payer OTHER, SELFPAY ==
[2024-02-26 11:40] LABS: HPV 16,18/45 See PAP report
== END 2024-02-25 14:21 | disposition home or self-care (01) ==
LOC: HO.LNP 14:20
PROVIDERS: PCP Internal Medicine; Visit Provider Advanced Practice Midwife
DX: Z01.419 Encounter for gynecological examination (general) (routine) without abnormal findings (principal)
CPT/HCPCS: 87624; 88175

== ENCOUNTER 2024-02-25 15:47 | Outpatient (REF) | payer OTHER, SELFPAY ==
[2024-02-26 02:52] LABS: CT PCR NOT DETECTED (Not Detect.); NG PCR NOT DETECTED (Not Detect.)
[2024-02-26 11:11] LABS: Bacterial Vaginosis PCR NEGATIVE (Negative); Candida Group PCR NOT DETECTED (Not Detect); Candida glab krusei PCR NOT DETECTED (Not Detect); Trichomonas vaginalis PCR NOT DETECTED (Not Detect)
== END 2024-02-25 15:48 | disposition home or self-care (01) ==
LOC: HO.LAB 15:47
PROVIDERS: Visit Provider Advanced Practice Midwife
DX: Z01.419 Encounter for gynecological examination (general) (routine) without abnormal findings (principal); N89.8 Other specified noninflammatory disorders of vagina
CPT/HCPCS: 0352U; 87491; 87591

== ENCOUNTER 2024-03-10 08:14 | Outpatient (REF) | payer OTHER, SELFPAY ==
--- NOTE | ~2024-03-10 | XR_ITS ---
EXAMINATION: XR BILATERAL KNEES XR RIGHT KNEE XR LEFT KNEE CLINICAL INFORMATION: Knee pain. COMPARISON: X-ray 12/12/2020. TECHNIQUE: AP bilateral knees one view. Right knee 3 views. Left knee 3 views. FINDINGS: RIGHT KNEE: Moderate-severe medial compartment arthritis, joint space loss, osteophytes. Mild-moderate lateral and patellofemoral arthritis. No visible acute fracture or dislocation. Small suprapatellar joint fluid. LEFT KNEE: Severe medial compartment arthritis, joint space loss, osteophytes. Mild-moderate lateral and patellofemoral arthritis. No acute fracture or dislocation. Small effusion. XR/XR knee RT 3V IMPRESSION: Right knee: Tricompartment osteoarthritis. Moderate-severe medial compartment arthritis. Slight progression from previous. No acute fracture seen. Left knee: Tricompartment osteoarthritis. Severe medial compartment arthritis. Slight worsening from previous. Small effusion. Electronically signed by: Tavares Malik MD 03/11/2024 04:51 PM [facility]
--- NOTE | ~2024-03-10 | XR_ITS ---
EXAMINATION: XR BILATERAL KNEES XR RIGHT KNEE XR LEFT KNEE CLINICAL INFORMATION: Knee pain. COMPARISON: X-ray 12/12/2020. TECHNIQUE: AP bilateral knees one view. Right knee 3 views. Left knee 3 views. FINDINGS: RIGHT KNEE: Moderate-severe medial compartment arthritis, joint space loss, osteophytes. Mild-moderate lateral and patellofemoral arthritis. No visible acute fracture or dislocation. Small suprapatellar joint fluid. LEFT KNEE: Severe medial compartment arthritis, joint space loss, osteophytes. Mild-moderate lateral and patellofemoral arthritis. No acute fracture or dislocation. Small effusion. XR/XR knee LT 3V IMPRESSION: Right knee: Tricompartment osteoarthritis. Moderate-severe medial compartment arthritis. Slight progression from previous. No acute fracture seen. Left knee: Tricompartment osteoarthritis. Severe medial compartment arthritis. Slight worsening from previous. Small effusion. Electronically signed by: Tavares Malik MD 03/11/2024 04:51 PM [facility]
--- NOTE | ~2024-03-10 | XR_ITS ---
EXAMINATION: XR BILATERAL KNEES XR RIGHT KNEE XR LEFT KNEE CLINICAL INFORMATION: Knee pain. COMPARISON: X-ray 12/12/2020. TECHNIQUE: AP bilateral knees one view. Right knee 3 views. Left knee 3 views. FINDINGS: RIGHT KNEE: Moderate-severe medial compartment arthritis, joint space loss, osteophytes. Mild-moderate lateral and patellofemoral arthritis. No visible acute fracture or dislocation. Small suprapatellar joint fluid. LEFT KNEE: Severe medial compartment arthritis, joint space loss, osteophytes. Mild-moderate lateral and patellofemoral arthritis. No acute fracture or dislocation. Small effusion. XR/XR knee standing BI IMPRESSION: Right knee: Tricompartment osteoarthritis. Moderate-severe medial compartment arthritis. Slight progression from previous. No acute fracture seen. Left knee: Tricompartment osteoarthritis. Severe medial compartment arthritis. Slight worsening from previous. Small effusion. Electronically signed by: Tavares Malik MD 03/11/2024 04:51 PM [facility]UL
[2024-03-10 10:55] LABS: Thyroid Stimulating Hormone 1.69 uIU/mL (0.32-4.0)
== END 2024-03-10 08:15 | disposition home or self-care (01) ==
LOC: HO.LAB 08:14
PROVIDERS: Absent Provider Student in an Organized Health Care Education/Training Program; PCP Internal Medicine; Visit Provider Internal Medicine
DX: M25.561 Pain in right knee (principal); M25.562 Pain in left knee; E06.3 Autoimmune thyroiditis
CPT/HCPCS: 36415; 73562; 73565; 84443

== ENCOUNTER 2024-04-17 14:32 | Outpatient (AMB) | payer OTHER, SELFPAY ==
--- NOTE | 2024-04-17 14:33 | A.OFFVIS_ITS ---
Vital Signs 04/17/24 14:35 BP 138/82 Blood Pressure Location Lt brachial Pulse 106 H Pulse Source Pulse Oximeter Pulse Oximetry (%) 100 Oxygen Delivery Method Room Air Intake Visit Reasons: bl knee euflexxa inj Allergies erythromycin base [Erythromycin Base] Allergy (Mild, Verified 02/25/24 14:32) Rash HPI Comments Details: Patient is a 53-year-old female with hypothyroidism who presents for follow up of bilateral knee OA Interval History: Patient establish care for evaluation of bilateral knee pain 01/31/2024. At that time exam and history was consistent with bilateral osteoarthritis of the knees. This was confirmed by radiographic imaging which showed moderate to severe tricompartment osteoarthritis in bilateral knees Treatment options discussed with patient and she decided to move forward with Euflexxa. She was also given Celebrex which had some efficacy in the beginning (1st 2 week) but she is now noting that it no longer works as well Today she is here for her 1st Euflexxa injection of bilateral knees. Rheumatologic History: Patient establish care for evaluation of bilateral knee pain 01/31/2024. At that time exam and history was consistent with bilateral osteoarthritis of the knees. This was confirmed by radiographic imaging which showed moderate to severe tricompartment osteoarthritis in bilateral knees Treatment options discussed with patient and she decided to move forward with Euflexxa. She was also given Celebrex which had some efficacy in the beginning (1st 2 week) but the efficacy waned Current Rheumatology Medication(s): Celebrex 200 mg p.o. daily [facility] Medical History Knee osteoarthritis Minerva's thyroiditis Surgical History History of Family History Mother No problems noted. Father Esophageal cancer Family/Other Substance use disorder Social History Housing: House Alcohol intake: never Patient Tobacco Use Status: Never used Tobacco e-Cigarette/Vaping Use: Never Used Second Hand Smoke Exposure: No service: No Current occupational status: employed Current occupational exposures/hazards: No Cognitive needs: No Hearing needs: No Vision needs: Yes Female Reproductive History Menstrual Age of Menarche: 11 Review of Systems Const Details: Review of Systems Constitutional: Denies fever, chills, weight loss ENT: Denies vision changes, eye pain or eye redness, dental caries, dry mouth GI: Denies nausea, vomiting, diarrhea, abdominal pain, change in BM Pulm: Denies SOB, DENIS, hemoptysis, wheezing Cards: Denies chest pain, palpitations Skin: Denies Raynaud's, rash, nail changes, photosensitivity, CAKE CUTTER MACHINE: Denies headaches, weakness, paresthesias, recurrent falls MSK: as per HPI All other systems reviewed and are unremarkable except noted above Physical Exam Vital Signs: Last Vital Signs Pulse 106 H 04/17/24 14:35 BP 138/82 04/17/24 14:35 Pulse Ox 100 04/17/24 14:35 Oxygen Delivery Method Room Air 04/17/24 14:35 Physical Examination Patient well appearing and in no apparent painful distress Able to rise from chair without support. ?Gait normal. Constitutional Mucous membranes pink and moist patient alert and cooperative HEENT Conjunctiva and sclera clear. ?Pupils equal round and reactive to light. ?No lymphadenopathy. ?Normal dentition. Respiratory System Normal respiratory effort and able to speak in complete sentences. ?Clear to auscultation bilaterally. ?No crackles, rales, rhonchi, wheezes heard. Cardiac System Regular rate and rhythm. ?S1 and S2 heard no murmurs. ?Radial pulses intact bilaterally MSK No deformity, swelling, abnormalities noted to bilateral hands. ?No evidence of synovitis. ?Able to move all joints with full range of motion, without limitation. Hands:.??Normal pain-free range of motion without tenderness, swelling, increased warmth or erythema. 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 Heberden's nodes noted to scattered DIPs. Wrists: Normal pain-free range of motion without tenderness, swelling, increased warmth or erythema. Elbows: Full range of motion without pain. No tenderness, weakness, swelling, increased warmth or erythema. Shoulders: Full range of motion without pain. No tenderness, weakness, swelling, increased warmth or erythema. Hips: Full range of motion without pain. Hip bursa:.??No tenderness. Knees:.???Normal pain-free range of motion without tenderness, swelling, increased warmth or erythema.? No effusion however there is bilateral knee crepitations right more than left. Ankles:.??Normal pain-free range of motion without tenderness, swelling, increased warmth or erythema. Feet:.??Normal pain-free range of motion without tenderness, swelling, increased warmth or erythema. Tender points:??No tenderness to digital palpation at the occiput, trapezius, second rib, lateral epicondyle, knees, greater trochanter bilaterally, and left gluteal. Office Procedures AMB Joint Injection/Aspiration Joint Injection/Aspiration Details: Procedure was explained to the patient and consent was obtained. ? The area of interest was identified and confirmed with patient. ?This was subsequently cleaned with chlorhexidine x3. ? The area was then anesthetized using ethyl chloride spray. 2 mL of 1% sodium hyaluronate (Euflexxa) administered. ?Minimal to no bleeding. ?Patient tolerated procedure. Primary Site: left knee Prep: site was prepped using aseptic technique and ethochloride spray was applied Injected: other (2mL Euflexxa) Approach Used: medial parapatellar Procedure: The patient tolerated the procedure well Coding 88541 - Large joint Procedure code (CPT) selection complete AMB Joint Injection/Aspiration Joint Injection/Aspiration Details: Procedure was explained to the patient and consent was obtained. ? The area of interest was identified and confirmed with patient. ?This was subsequently cleaned with chlorhexidine x3. ? The area was then anesthetized using ethyl chloride spray. 2 mL of 1% sodium hyaluronate (Euflexxa) administered. ?Minimal to no bleeding. ?Patient tolerated procedure. Primary Site: right knee Prep: site was prepped using aseptic technique and ethochloride spray was applied Injected: other (2mL Euflexxa) Approach Used: medial parapatellar Procedure: The patient tolerated the procedure well Coding 64865 - Large joint Procedure code (CPT) selection complete Office Meds Euflexxa 10 mg/mL (mw 2.4-3.6 million) intra-articular syringe Performing Provider: Polina Hernandez MD Performing Location: [facility] [place] Administered by: Polina Hernandez MD on 04/17/24 15:07 Dose Route Admin Location Dispensed Lot Number Expiration Date [facility] Nursing Surgical Services Director 20 mg intra-articular left knee 2 mL [id number] 03/14/25 [address]-1 [facility] Euflexxa 10 mg/mL (mw 2.4-3.6 million) intra-articular syringe Performing Provider: Polina Hernandez MD Performing Location: [facility] [place] Rhe[facility]ology Administered by: Polina Hernandez MD on 04/17/24 15:11 Dose Route Admin Location Dispensed Lot Number Expiration Date [facility] Nursing Surgical Services Director 20 mg intra-articular right knee 2 mL [id number] 03/14/25 [address]-8 [facility] Results Reviewed Results Reviewed: XR Bilateral Knees 03/10/2024 FINDINGS: RIGHT KNEE: Moderate-severe medial compartment arthritis, joint space loss, osteophytes. Mild-moderate lateral and patellofemoral arthritis. No visible acute fracture or dislocation. Small suprapatellar joint fluid. LEFT KNEE: Severe medial compartment arthritis, joint space loss, osteophytes. Mild-moderate lateral and patellofemoral arthritis. No acute fracture or dislocation. Small effusion. Assessment & Plan Assessment & Plan (1) Knee osteoarthritis: Code(s): M17.9 - Osteoarthritis of knee, unspecified Category: Medical Qualifiers: Osteoarthritis type: primary Laterality: bilateral Qualified Code(s): M17.0 - Bilateral primary osteoarthritis of knee Plan: #Bilateral knee OA Had some improvement with the Celebrex 200 mg daily but the efficacy has waned Now status post the 1st round of Euflexxa injection Plan - complete Euflexxa series - consider increasing Celebrex to 200 mg twice a day - RTC 1 week Plan I spent 20 minutes reviewing the record and labs, seeing the patient, discussing the treatment plan and documenting in the medical record ? Orders: Orders AMB Joint Injection/Aspiration Today M17.11 - Unilateral primary osteoarthritis, right knee AMB Joint Injection/Aspiration Today M17.12 - Unilateral primary osteoarthritis, left knee Medications: New Euflexxa (sodium hyaluronate (viscosup)) 20 mg (2 mL) intra-articular ONCE 2 mL 0RF NS M17.11 - Unilateral primary osteoarthritis, right knee Coding Level of Care Code Est Pt Level 3 (44303) Diagnoses Primary osteoarthritis of both knees M17.0 Osteoarthritis type: primary Laterality: bilateral CPT Codes Coding - 87274 Large joint: 03476 - Large joint ([id number]) Coding - 94667 Large joint: 27725 - Large joint ([id number])
[2024-04-17 14:35] VITALS: BP 138/82; PULSE 106; O2SAT 100
== END 2024-04-17 14:58 | disposition home or self-care (01) ==
PROVIDERS: PCP Internal Medicine; Visit Provider Student in an Organized Health Care Education/Training Program
DX: M17.0 Bilateral primary osteoarthritis of knee (principal)
CPT/HCPCS: 20610; 99213

== ENCOUNTER → 2024-04-17 14:32 | Outpatient (BNVA) | payer OTHER, SELFPAY | PROVIDERS: PCP Internal Medicine; Visit Provider Student in an Organized Health Care Education/Training Program | DX: M17.0 Bilateral primary osteoarthritis of knee (principal) | CPT/HCPCS: 20610; J7323 ==

== ENCOUNTER 2024-04-21 07:24 | Outpatient (AMB) | payer OTHER, SELFPAY ==
[2024-04-21 07:31] VITALS: BP 136/80; BMI 40.9
--- NOTE | 2024-04-21 07:31 | MHC.PC.OV ---
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 Accompanied by: Self / Same As Patient Allergies erythromycin base [Erythromycin Base] Allergy (Mild, Verified 04/21/24 07:39) Rash Medication List - Last Reconciled 04/21/24 by Rowena Killian MD celecoxib (Celebrex) 200 mg PO DAILY 90 days levothyroxine 175 mcg PO DAILY 90 days Tobacco use date assessed: 11/11/23 Dental Screening Dental Screen Date: 11/11/23 HPI HPI Comments History of Present Illness Details The patient is a 53-year-old female presenting for a routine check-up and ongoing management of her chronic conditions, including morbid obesity, hypothyroidism, and bilateral knee pain. The patient has a history of elevated cholesterol, last noted during a visit in February, and continued hypothyroidism managed with Levothyroxine. She reports good management of her thyroid with no need for recent adjustments, as her last lab results were satisfactory. The patient does experience bilateral knee pain, which had temporarily improved with Celecoxib but is currently less effective. Injections administered by Dr. Hernandez provided some improvement. The patient's BMI is documented as 40.9, indicating morbid obesity. She has implemented regular exercise into her lifestyle but struggles with dietary modifications. She denies any recent chest pain or shortness of breath. Her most recent Cologuard and Pap smear were negative. COUNTS INCLUDE 234 BEDS AT THE [facility] Medical History (Updated 04/21/24 @ 09:04 by Rowena Killian MD) Knee osteoarthritis Minerva's thyroiditis Surgical History History of Family History Mother No problems noted. Father Esophageal cancer Family/Other Substance use disorder Social History Housing: House Alcohol intake: never Patient Tobacco Use Status: Never used Tobacco e-Cigarette/Vaping Use: Never Used Second Hand Smoke Exposure: No service: No Current occupational status: employed Current occupational exposures/hazards: No Cognitive needs: No Hearing needs: No Vision needs: Yes Female Reproductive History Menstrual Age of Menarche: 11 Questionnaire PHQ-9 Over the last 2 weeks, how often have you been bothered by any of the following problems? 1. Little interest or pleasure in doing things: not at all 2. Feeling down, depressed, or hopeless: not at all 3. Trouble falling or staying asleep, or sleeping too much: not at all 4. Feeling tired or having little energy: not at all 5. Poor appetite or overeating: not at all 6. Feeling bad about yourself - or that you are a failure or have let yourself or your family down: not at all 7. Trouble concentrating on things, such as reading the newspaper or watching television: not at all 8. Moving or speaking so slowly that other people could have noticed. Or the opposite - being so fidgety or restless that you have been moving around a lot more than usual: not at all 9. Thoughts that you would be better off or of hurting yourself in some way: not at all Total score: 0 Depression Screening Interpretation: Negative Depression Screening Done: Yes 19499 - PHQ-9 Billing: Yes Source: Developed by Drs. Jesus Dalton, Yahaira Shane, Nathan Harrison and colleagues, with an educational ne from [email or web address]. Thrive Questionnaire Date Thrive assessed: 04/21/24 I am a: Patient What is your living situation today?: I have a steady place to live Within the past 12 months, did the food you bought not last and you didn't have the money to get more?: Never true Within the past 12 months, did you worry whether your food would run out before you got money to buy more?: Never true Do you have trouble paying for medicines?: No Do you have trouble getting transportation to medical appointments?: No Do you have trouble paying your heating and electricity bill?: No Do you have trouble taking care of your child, family member or friend?: No Do you have trouble with day-to-day activities such as bathing, preparing meals, shopping, managing finances, etc.?: No Are you currently unemployed and looking for a job?: No Are you interested in more education?: No Please select the resources that you would like help with: None Currently or been in a relationship where the following occur: No concerns reported THRIVE Score: 0 AUDIT C Alcohol Use Questionnaire (AUDIT-C) 1. How often do you have a drink containing alcohol?: Never Total Score: 0 Score Reviewed/Action Taken: Yes CARMEN-7 AMB Questionnaire CARMEN-7 Date CARMEN - 7 assessed: 04/21/24 Feeling nervous, anxious, or on edge: 0 = Not at all Not being able to stop or control worryin = Not at all Worrying too much about different things: 0 = Not at all Trouble relaxin = Not at all Being so restless that it is hard to sit still: 0 = Not at all Becoming easily annoyed or irritable: 0 = Not at all Feeling afraid as if something awful might happen: 0 = Not at all Total CARMEN-7 score (0-4 normal; 5-9 mild; 10-14 moderate; 15-21 severe): 0 Source: Developed by Drs. Jesus Dalton, Yahaira Shane, Nathan Harrison and colleagues, with an educational ne from [email or web address]. CARMEN-7 Assessment Billing CARMEN-7 Assessment Tool: CARMEN-7 Assessment 29080 Review of Systems Const All systems reviewed & are unremarkable except as noted in HPI and below Card Denies chest pain at rest, Denies chest pain with activity, Denies edema, Denies irregular heart rhythm, Denies claudication, Denies dyspnea, Denies dyspnea on exertion, Denies orthopnea, Denies paroxysmal nocturnal dyspnea and Denies slow heart rate Resp Denies cough, Denies dyspnea and Denies dyspnea on exertion GI Denies abdominal pain, Denies change in bowel habits, Denies excessive flatus, Denies nausea and Denies vomiting Musc Denies atrophy, Denies deformity, Reports arthralgias and Denies limited range of motion Physical exam (Primary Care) Vital Signs: Last Vital Signs BP 136/80 04/21/24 07:31 BMI result Body Mass Index 40.9 BMI Assessment/Plan discussion: High BMI High, discussed plan: lifestyle, weight reduction, dietary and physical activity Tobacco/Smoking Status: Tobacco use Status Tobacco use date assessed 11/11/23 04/21/24 07:34 Patient Tobacco Use Status Never used Tobacco 04/21/24 07:34 e-Cigarette/Vaping Use Never Used 04/21/24 07:34 PHQ-9: PHQ-9 Score PHQ-9: Total score 0 04/21/24 08:12 Depression Screening Interpretation: Negative Thrive Assessment: Date of Thrive Assessment Date Thrive assessed 04/21/24 04/21/24 08:12 Currently or been in a relationship where the following occur: No concerns reported Resp Effort & Inspection: normal respiratory effort Auscultation: clear to auscultation bilaterally Cardio Jugular venous distension: no JVD Rate: regular rate Rhythm: regular rhythm Heart sounds: S1 normal heart sound present and S2 normal heart sound present Extrem General: Yes full ROM Coding Level of Care Code Est Pt Level 4 (27634) Complex EM visit Add On G2211 Diagnoses Minerva's thyroiditis E06.3 Morbid obesity with BMI of 40.0-44.9, adult E66.01; Z68.41 Bilateral anterior knee pain M25.561; M25.562 Dyslipidemia E78.5 Additional Codes CARMEN-7 Assessment Billing - CARMEN-7 Assessment Tool: CARMEN-7 Assessment 93584 ([id number]) PHQ-9 - 48220 - PHQ-9 Billing: Yes ([id number]) Time Spent (min) 22 Assessment & Plan Assessment & Plan (1) Minerva's thyroiditis: Code(s): E06.3 - Autoimmune thyroiditis Category: Medical (2) Morbid obesity with BMI of 40.0-44.9, adult: Code(s): E66.01 - Morbid (severe) obesity due to excess calories; Z68.41 - Body mass index [BMI] 40.0-44.9, adult Category: Medical (3) Bilateral anterior knee pain: Code(s): M25.561 - Pain in right knee; M25.562 - Pain in left knee Category: Medical (4) Dyslipidemia: Code(s): E78.5 - Hyperlipidemia, unspecified Category: Medical Plan - Continue current dose of Levothyroxine for hypothyroidism, monitor thyroid function tests as needed. - Maintain Celecoxib on an as-needed basis for knee pain; consider re-evaluation if pain persists. - Dietary intervention recommended with focus on portion control and increasing protein intake to aid in weight management. - Routine monitoring of cholesterol levels in next physical examination scheduled for November. - Continue exercise regimen and consider consultation with a document clerk for dietary guidance. Patient was informed and verbally consented to the use of an ambient scribe for clinic note documentation during this visit. During the visit, I discussed the importance of managing the patient's morbid obesity and elevated cholesterol through dietary changes and regular exercise. We reviewed the risks associated with high BMI, including cardiovascular complications. I advised continuing her current medications with regular monitoring of thyroid levels. The patient expressed understanding and agreement with the plan, including the approach to manage knee pain with current pharmacotherapy and injections, and the consideration of nutritional modifications. We agreed to check cholesterol levels and repeat routine screenings in November if no new symptoms arise. Orders: Orders Lipid Panel 7 Months E78.5 - Hyperlipidemia, unspecified Comprehensive [place]. Panel Fast 7 Months E66.01 - Morbid (severe) obesity due to excess calories, Z68.41 - Body mass index [BMI] 40.0-44.9, adult Thyroid Stimulating Hormone 7 Months E06.3 - Autoimmune thyroiditis Patient Instructions: - Continue taking Levothyroxine and Celecoxib as directed. - Engage in regular physical activity and focus on dietary adjustments, particularly reducing carbohydrates and increasing protein intake. - Monitor for any new symptoms and seek medical advice if experiencing chest pain or shortness of breath. - Follow up for routine blood work and screenings in November. - Maintain regular follow-up appointments for ongoing health assessment and monitoring.
== END 2024-04-21 07:46 | disposition home or self-care (01) ==
PROVIDERS: PCP Internal Medicine; Visit Provider Internal Medicine
DX: E06.3 Autoimmune thyroiditis (principal); E66.01 Morbid (severe) obesity due to excess calories; Z68.41 Body mass index [BMI] 40.0-44.9, adult; M25.561 Pain in right knee; M25.562 Pain in left knee; E78.5 Hyperlipidemia, unspecified

== ENCOUNTER → 2024-04-21 07:24 | Outpatient (BNVA) | payer OTHER, SELFPAY | PROVIDERS: PCP Internal Medicine; Visit Provider Internal Medicine | DX: E06.3 Autoimmune thyroiditis (principal); E66.01 Morbid (severe) obesity due to excess calories; Z68.41 Body mass index [BMI] 40.0-44.9, adult; M25.661 Stiffness of right knee, not elsewhere classified; M25.562 Pain in left knee; E78.5 Hyperlipidemia, unspecified; Z79.899 Other long term (current) drug therapy | CPT/HCPCS: 96127 ==

== ENCOUNTER 2024-04-24 13:54 | Outpatient (AMB) | payer OTHER, SELFPAY ==
[2024-04-24 13:58] VITALS: BP 128/72; PULSE 80; O2SAT 96
--- NOTE | 2024-04-24 13:58 | A.OFFVIS_ITS ---
Vital Signs 04/24/24 13:58 Height 5 ft 9 in BP 128/72 Blood Pressure Location Lt brachial Position Sitting Pulse 80 Pulse Source Pulse Oximeter Pulse Oximetry (%) 96 Oxygen Delivery Method Room Air Intake Visit Reasons: bl knee euflexxa inj Intake Note: Bilateral knee euflexxa injection Allergies erythromycin base [Erythromycin Base] Allergy (Mild, Verified 04/24/24 13:59) Rash HPI Comments Details: Patient is a 53-year-old female with hypothyroidism who presents for follow up of bilateral knee OA Interval History: Patient has seen 1 week ago at that time she got her 1st Euflexxa injection in the bilateral knees. Today she is here for 2nd injection. Complains of right medial knee pain Rheumatologic History: Patient establish care for evaluation of bilateral knee pain 01/31/2024. At that time exam and history was consistent with bilateral osteoarthritis of the knees. This was confirmed by radiographic imaging which showed moderate to severe tricompartment osteoarthritis in bilateral knees Treatment options discussed with patient and she decided to move forward with Euflexxa. She was also given Celebrex which had some efficacy in the beginning (1st 2 week) but the efficacy waned Current Rheumatology Medication(s): Celebrex 200 mg p.o. daily [facility] Medical History Knee osteoarthritis Minerva's thyroiditis Surgical History History of Family History Mother No problems noted. Father Esophageal cancer Family/Other Substance use disorder Social History Housing: House Alcohol intake: never Patient Tobacco Use Status: Never used Tobacco e-Cigarette/Vaping Use: Never Used Second Hand Smoke Exposure: No service: No Current occupational status: employed Current occupational exposures/hazards: No Cognitive needs: No Hearing needs: No Vision needs: Yes Female Reproductive History Menstrual Age of Menarche: 11 Review of Systems Const Details: Review of Systems Constitutional: Denies fever, chills, weight loss ENT: Denies vision changes, eye pain or eye redness, dental caries, dry mouth GI: Denies nausea, vomiting, diarrhea, abdominal pain, change in BM Pulm: Denies SOB, DENIS, hemoptysis, wheezing Cards: Denies chest pain, palpitations Skin: Denies Raynaud's, rash, nail changes, photosensitivity, 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 ?Gait normal. Constitutional Mucous membranes pink and moist patient alert and cooperative HEENT Conjunctiva and sclera clear. ?Pupils equal round and reactive to light. ?No lymphadenopathy. ?Normal dentition. Respiratory System Normal respiratory effort and able to speak in complete sentences. ?Clear to auscultation bilaterally. ?No crackles, rales, rhonchi, wheezes heard. Cardiac System Regular rate and rhythm. ?S1 and S2 heard no murmurs. ?Radial pulses intact bilaterally MSK No deformity, swelling, abnormalities noted to bilateral hands. ?No evidence of synovitis. ?Able to move all joints with full range of motion, without limitation. Hands:.??Normal pain-free range of motion without tenderness, swelling, increased warmth or erythema. Able to make a full fist and has a good field coil winder strength. Heberden's nodes noted to scattered DIPs. Wrists: Normal pain-free range of motion without tenderness, swelling, increased warmth or erythema. Knees:.???Normal pain-free range of motion without tenderness, swelling, increased warmth or erythema.? No effusion however there is bilateral knee crepitations right more than left. TTP over the right pes anserine bursa Office Procedures AMB Joint Injection/Aspiration Joint Injection/Aspiration Details: Procedure was explained to the patient and consent was obtained. ? The area of interest was identified and confirmed with patient. ?This was subsequently cleaned with chlorhexidine x3. ? The area was then anesthetized using ethyl chloride spray. 2mLs Euflexxa administered to the right knee. Primary Site: right knee Approach Used: medial parapatellar Procedure: The patient tolerated the procedure well Coding 88649 - Large joint Procedure code (CPT) selection complete AMB Joint Injection/Aspiration Joint Injection/Aspiration Details: Procedure was explained to the patient and consent was obtained. ? The area of interest was identified and confirmed with patient. ?This was subsequently cleaned with chlorhexidine x3. ? The area was then anesthetized using ethyl chloride spray. 2mLs Euflexxa administered to left knee. ?Minimal to no bleeding. ?Patient tolerated procedure. Primary Site: left knee Prep: site was prepped using aseptic technique and ethochloride spray was applied Approach Used: medial parapatellar Procedure: The patient tolerated the procedure well Coding 78667 - Large joint Procedure code (CPT) selection complete Office Meds Euflexxa 10 mg/mL (mw 2.4-3.6 million) intra-articular syringe Performing Provider: Polina Hernandez MD Performing Location: [facility] [place] [facility] Administered by: Polina Hernandez MD on 04/24/24 14:35 Dose Route Admin Location Dispensed Lot Number Expiration Date [facility] [place][NOTE 3] [employer] 20 mg intra-articular 2 mL [id number] 03/14/25 [address]-3 [employer] Euflexxa 10 mg/mL (mw 2.4-3.6 million) intra-articular syringe Performing Provider: Polina Hernandez MD Performing Location: [facility] [place] Rheumatology Administered by: Polina Hernandez MD on 04/24/24 14:35 Dose Route Admin Location Dispensed Lot Number Expiration Date [facility] [place][NOTE 3] [employer] 20 mg intra-articular 2 mL [id number] 03/07/25 [address]-7 [employer] Results Reviewed Results Reviewed: XR Bilateral Knees 03/10/2024 FINDINGS: RIGHT KNEE: Moderate-severe medial compartment arthritis, joint space loss, osteophytes. Mild-moderate lateral and patellofemoral arthritis. No visible acute fracture or dislocation. Small suprapatellar joint fluid. LEFT KNEE: Severe medial compartment arthritis, joint space loss, osteophytes. Mild-moderate lateral and patellofemoral arthritis. No acute fracture or dislocation. Small effusion. Assessment & Plan Assessment & Plan (1) Knee osteoarthritis: Code(s): M17.9 - Osteoarthritis of knee, unspecified Category: Medical Qualifiers: Osteoarthritis type: primary Laterality: bilateral Qualified Code(s): M17.0 - Bilateral primary osteoarthritis of knee Plan: #Bilateral knee OA Had some improvement with the Celebrex 200 mg daily but the efficacy has waned Now status post the 2nd round of Euflexxa injection Plan - complete Euflexxa series - consider increasing Celebrex to 200 mg twice a day - RTC 1 week (2) Pes anserine bursitis: Code(s): M70.50 - Other bursitis of knee, unspecified knee Qualifiers: Laterality: right Qualified Code(s): M70.51 - Other bursitis of knee, right knee Plan: #Right pes anserine burisitis Tenderness to palpation over the pes anserine bursa today Plan - Topical ice - Topical diclofenac - Can consider steroid injection in the future Plan I spent 20 minutes reviewing the record and labs, seeing the patient, discussing the treatment plan and documenting in the medical record ? Orders: Orders AMB Joint Injection/Aspiration Today M17.0 - Bilateral primary osteoarthritis of knee AMB Joint Injection/Aspiration Today M17.0 - Bilateral primary osteoarthritis of knee Medications: New Euflexxa (sodium hyaluronate (viscosup)) 20 mg (2 mL) intra-articular ONCE 2 mL 0RF NS M17.0 - Bilateral primary osteoarthritis of knee Euflexxa (sodium hyaluronate (viscosup)) 20 mg (2 mL) intra-articular ONCE 2 mL 0RF NS M17.0 - Bilateral primary osteoarthritis of knee Coding Level of Care Code Est Pt Level 3 (53627) Diagnoses Primary osteoarthritis of both knees M17.0 Osteoarthritis type: primary Laterality: bilateral Pes anserinus bursitis of right knee M70.51 Laterality: right CPT Codes Coding - 71076 Large joint: 59114 - Large joint ([id number]) Coding - 99859 Large joint: 00418 - Large joint ([id number])
== END 2024-04-24 14:27 | disposition home or self-care (01) ==
PROVIDERS: PCP Internal Medicine; Visit Provider Student in an Organized Health Care Education/Training Program
DX: M17.0 Bilateral primary osteoarthritis of knee (principal); M70.51 Other bursitis of knee, right knee
CPT/HCPCS: 20610; 99213

== ENCOUNTER → 2024-04-24 13:54 | Outpatient (BNVA) | payer OTHER, SELFPAY | PROVIDERS: PCP Internal Medicine; Visit Provider Student in an Organized Health Care Education/Training Program | DX: M17.0 Bilateral primary osteoarthritis of knee (principal); M70.51 Other bursitis of knee, right knee | CPT/HCPCS: 20610; J7323 ==

== ENCOUNTER 2024-05-01 14:26 | Outpatient (AMB) | payer OTHER, SELFPAY ==
--- NOTE | 2024-05-01 14:29 | A.OFFVIS_ITS ---
Vital Signs 05/01/24 14:33 Height 5 ft 9 in BMI Reason not done Patient refused/unable BP 112/80 Blood Pressure Location Rt brachial Position Sitting Respiration 16 Pulse 84 Pulse Source Pulse Oximeter Pulse Oximetry (%) 97 Oxygen Delivery Method Room Air Intake Visit Reasons: bl knee euflexxa inj Intake Note: Patient presents for bilateral knee follow up and Euflexxa injection. Allergies erythromycin base [Erythromycin Base] Allergy (Mild, Verified 05/01/24 14:33) Rash Medication List - Last Reconciled 05/01/24 by Polina Hernandez MD betamethasone valerate 0.1% 1 appl topical BID PRN celecoxib (Celebrex) 200 mg PO DAILY 90 days levothyroxine 175 mcg PO DAILY 90 days HPI Comments Details: Patient is a 53-year-old female with hypothyroidism who presents for follow up of bilateral knee OA Interval History: Patient has seen 1 week ago at that time she got her 2nd Euflexxa injection in the bilateral knees. Today she is here for 3rd injection. Right medial knee pain persists Overall knee pain stable/improved Rheumatologic History: Patient establish care for evaluation of bilateral knee pain 01/31/2024. At that time exam and history was consistent with bilateral osteoarthritis of the knees. This was confirmed by radiographic imaging which showed moderate to severe tricompartment osteoarthritis in bilateral knees Treatment options discussed with patient and she decided to move forward with Euflexxa. She was also given Celebrex which had some efficacy in the beginning ( 2 wee k) but the efficacy waned Current Rheumatology Medication(s): Celebrex 200 mg p.o. daily [facility] Medical History Knee osteoarthritis Minerva's thyroiditis Surgical History History of Family History Mother No problems noted. Father Esophageal cancer Family/Other Substance use disorder Social History Housing: House Alcohol intake: never Patient Tobacco Use Status: Never used Tobacco e-Cigarette/Vaping Use: Never Used Second Hand Smoke Exposure: No service: No Current occupational status: employed Current occupational exposures/hazards: No Cognitive needs: No Hearing needs: No Vision needs: Yes Female Reproductive History Menstrual Age of Menarche: 11 Review of Systems Const Details: Review of Systems Constitutional: Denies fever, chills, weight loss ENT: Denies vision changes, eye pain or eye redness, dental caries, dry mouth GI: Denies nausea, vomiting, diarrhea, abdominal pain, change in BM Pulm: Denies SOB, DENIS, hemoptysis, wheezing Cards: Denies chest pain, palpitations Skin: Denies Raynaud's, rash, nail changes, photosensitivity, 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 ?Gait normal. Constitutional Mucous membranes pink and moist patient alert and cooperative HEENT Conjunctiva and sclera clear. ?Pupils equal round and reactive to light. ?No lymphadenopathy. ?Normal dentition. Respiratory System Normal respiratory effort and able to speak in complete sentences. ?Clear to auscultation bilaterally. ?No crackles, rales, rhonchi, wheezes heard. Cardiac System Regular rate and rhythm. ?S1 and S2 heard no murmurs. ?Radial pulses intact bilaterally MSK No deformity, swelling, abnormalities noted to bilateral hands. ?No evidence of synovitis. ?Able to move all joints with full range of motion, without limitation. Hands:.??Normal pain-free range of motion without tenderness, swelling, increased warmth or erythema. Able to make a full fist and has a good clinical social work aide strength. Heberden's nodes noted to scattered DIPs. Wrists: Normal pain-free range of motion without tenderness, swelling, increased warmth or erythema. Knees:.???Normal pain-free range of motion without tenderness, swelling, increased warmth or erythema.? No effusion however there is bilateral knee crep itations right more than left. TTP over the right pes anserine bursa Skin: Contact dermatitis noted of the medial knee L worse than right Office Procedures AMB Joint Injection/Aspiration Joint Injection/Aspiration Details: Procedure was explained to the patient and consent was obtained. ? The area of interest was identified and confirmed with patient. ?This was subsequently cleaned with chlorhexidine x3. ? The area was then anesthetized using ethyl chloride spray. 2cc Euflexxa was injected without issue. ?Minimal to no bleeding. ?Patient tolerated procedure. Primary Site: left knee Prep: site was prepped using aseptic technique and ethochloride spray was applied Injected: in the joint Approach Used: anterior Procedure: The patient tolerated the procedure well Coding 02612 - Large joint Procedure code (CPT) selection complete AMB Joint Injection/Aspiration Joint Injection/Aspiration Details: Procedure was explained to the patient and consent was obtained. ? The area of interest was identified and confirmed with patient. ?This was subsequently cleaned with chlorhexidine x3. ? The area was then anesthetized using ethyl chloride spray. 2cc Euflexxa was injected without issue. ?Minimal to no bleeding. ?Patient to lerated procedure. Primary Site: right knee Prep: site was prepped using aseptic technique and ethochloride spray was applied Injected: in the joint Approach Used: anterior Procedure: The patient tolerated the procedure well Coding 58275 - Large joint Procedure code (CPT) selection complete Office Meds Euflexxa 10 mg/mL (mw 2.4-3.6 million) intra-articular syringe Performing Provider: Polina Hernandez MD Performing Location: [facility] [place] Rheumatology Administered by: Polina Hernandez MD on 05/01/24 15:20 Dose Route Admin Location Dispensed Lot Number Expiration Date [facility] [employer] 20 mg intra-articular left knee 2 mL [id number] 03/07/25 [address]-4 [employer] Euflexxa 10 mg/mL (mw 2.4-3.6 million) intra-articular syringe Performing Provider: Polina Hernandez MD Performing Location: [facility] [place] Rheumatology Administered by: Polina Hernandez MD on 05/01/24 15:20 Dose Route Admin Location Dispensed Lot Number Expiration Date [facility] [employer] 20 mg intra-articular right knee 2 mL [id number] 03/07/25 [address]-9 [employer] Results Reviewed Results Reviewed: XR Bilateral Knees 03/10/2024 FINDINGS: RIGHT KNEE: Moderate-severe medial compartment arthritis, joint space loss, osteophytes. Mild-moderate lateral and patellofemoral arthritis. No visible acute fracture or dislocation. Small suprapatellar joint fluid. LEFT KNEE: Severe medial compartment arthritis, joint space loss, osteophytes. Mild-moderate lateral and patellofemoral arthritis. No acute fracture or dislocation. Small effusion. Assessment & Plan Assessment & Plan (1) Knee osteoarthritis: Code(s): M17.9 - Osteoarthritis of knee, unspecified Category: Medical Qualifiers: Laterality: bilateral Osteoarthritis type: primary Qualified Code(s): M17.0 - Bilateral primary osteoarthritis of knee Plan: #Bilateral knee OA Had some improvement with the Celebrex 200 mg daily but the efficacy has waned Now status post the 3rd round of Euflexxa injection Plan - completed Euflexxa series - Celebrex to 200 mg twice a day - RTC 6 months (2) Pes anserine bursitis: Code(s): M70.50 - Other bursitis of knee, unspecified knee Qualifiers: Laterality: bilateral Qualified Code(s): M70.51 - Other bursitis of knee, right knee; M70.52 - Other bursitis of knee, left knee Plan: #Right pes anserine burisitis Tenderness to palpation over the pes anserine bursa today Plan - Topical ice - Topical diclofenac - Can consider steroid injection in the future (3) Contact dermatitis: Code(s): L25.9 - Unspecified contact dermatitis, unspecified cause Qualifiers: Contact dermatitis type: irritant Contact dermatitis trigger: other trigger Qualified Code(s): L24.89 - Irritant contact dermatitis due to other agents Plan: #Contact dermatitis Contact dermatitis related to non branded band aid Topical Betamethasone bid Plan I spent 20 minutes reviewing the record and labs, seeing the patient, discussing the treatment plan and documenting in the medical record ? Orders: Orders AMB Joint Injection/Aspiration Today M17.0 - Bilateral primary osteoarthritis of knee AMB Joint Injection/Aspiration Today M17.0 - Bilateral primary osteoarthritis of knee Medications: New betamethasone valerate 0.1% Apply to bilateral knees on the area of the rash twice a day for 1-2 weeks until resolved 1 appl topical BID PRN 45 grams 0RF skin irritation L24.89 - Irritant contact dermatitis due to other agents Changed From celecoxib (Celebrex) 200 mg PO DAILY 90 days 90 caps 0RF M17.9 - Osteoarthritis of knee, unspecified To celecoxib (Celebrex) 200 mg PO BID 90 days 180 caps 1RF M17.9 - Osteoarthri tis of knee, unspecified Coding Level of Care Code Est Pt Level 3 (10326) Diagnoses Primary osteoarthritis of both knees M17.0 Laterality: bilateral Osteoarthritis type: primary Pes anserinus bursitis of both knees M70.51; M70.52 Laterality: bilateral Irritant contact dermatitis due to other agents L24.89 Contact dermatitis type: irritant Contact dermatitis trigger: other trigger CPT Codes Coding - 14134 Large joint: 74703 - Large joint ([id number]) Coding - 53032 Large joint: 55283 - Large joint ([id number])
[2024-05-01 14:33] VITALS: BP 112/80; PULSE 84; RESP 16; O2SAT 97
== END 2024-05-01 15:09 | disposition home or self-care (01) ==
PROVIDERS: PCP Internal Medicine; Visit Provider Student in an Organized Health Care Education/Training Program
DX: M17.0 Bilateral primary osteoarthritis of knee (principal); M70.51 Other bursitis of knee, right knee; M70.52 Other bursitis of knee, left knee; L24.89 Irritant contact dermatitis due to other agents
CPT/HCPCS: 20610; 99214

== ENCOUNTER → 2024-05-01 14:26 | Outpatient (BNVA) | payer OTHER, SELFPAY | PROVIDERS: PCP Internal Medicine; Visit Provider Student in an Organized Health Care Education/Training Program | DX: M17.0 Bilateral primary osteoarthritis of knee (principal); M70.51 Other bursitis of knee, right knee; M70.52 Other bursitis of knee, left knee; L24.89 Irritant contact dermatitis due to other agents | CPT/HCPCS: 20610; J7323 ==

== ENCOUNTER 2025-01-14 15:49 | Outpatient (AMB) | payer OTHER, SELFPAY ==
--- NOTE | 2025-01-14 15:50 | A.OFFVIS_ITS ---
Vital Signs 01/14/25 15:55 Height 5 ft 9 in Weight 275 lb BMI 40.6 BP 122/70 Blood Pressure Location Lt brachial Position Sitting Pulse 86 Pulse Source Pulse Oximeter Pulse Oximetry (%) 98 Oxygen Delivery Method Room Air Intake Visit Reasons: follow up Intake Note: Patient presents for osteoarthritis and contact dermatitis follow up and Euflexxa injections. Allergies erythromycin base (Erythromycin Base) Allergy (Mild, Verified 01/14/25 15:55) Rash Medication List - Last Reconciled 01/14/25 by Polina Hernandez MD betamethasone valerate 0.1% 1 appl topical BID PRN celecoxib (Celebrex) 200 mg PO BID 90 days levothyroxine 175 mcg PO DAILY 90 days HPI Comments Details: Patient is a 54-year-old female with hypothyroidism who presents for follow up of bilateral knee OA Interval History: Patient has seen 05/01/24 with me - On celebrex 200mg bid - Completed Euflexxa series Today - On celebrex 200mg bid - Knees doing well - C/o pain to medial knee bilaterally Rheumatologic History: Patient establish care for evaluation of bilateral knee pain 01/31/2024. At that time exam and history was consistent with bilateral osteoarthritis of the knees. This was confirmed by radiographic imaging which showed moderate to severe tricompartment osteoarthritis in bilateral knees Treatment options discussed with patient and she decided to move forward with Euflexxa. She was also given Celebrex which had some efficacy in the beginning (1st 2 week) but the efficacy waned Current Rheumatology Medication(s): Celebrex 200 mg p.o. daily [facility] Medical History Knee osteoarthritis Minerva's thyroiditis Surgical History History of Family History Mother No problems noted. Father Esophageal cancer Family/Other Substance use disorder Social History Housing: House Alcohol intake: never Patient Tobacco Use Status: Never used Tobacco e-Cigarette/Vaping Use: Never Used Second Hand Smoke Exposure: No service: No Current occupational status: employed Current occupational exposures/hazards: No Cognitive needs: No Hearing needs: No Vision needs: Yes Female Reproductive History Menstrual Age of Menarche: 11 Review of Systems Const Details: Review of Systems Constitutional: Denies fever, chills, weight loss ENT: Denies vision changes, eye pain or eye redness, dental caries, dry mouth GI: Denies nausea, vomiting, diarrhea, abdominal pain, change in BM Pulm: Denies SOB, DENIS, hemoptysis, wheezing Cards: Denies chest pain, palpitations Skin: Denies Raynaud's, rash, nail changes, photosensitivity, GLUE MAKER: Denies headaches, weakness, paresthesias, recurrent falls MSK: as per HPI All other systems reviewed and are unremarkable except noted above Physical Exam Exam Exam: Vital signs reviewed Physical Examination CONSTITUITIONAL Patient alert and cooperative. Well appearing and in no apparent painful distress MSK Hands * Right Hand: Able to make a fist. No swelling or tenderness to palpation of the MCPs, PIPs or DIPs. * Left Hand: Able to make a fist. No swelling or tenderness to palpation of the MCPs, PIPs or DIPs. * Herbedens nodes noted bilaterally Wrists * Right Wrist: Full ROM to flexion and extension. No swelling or TTP * Left Wrist: Full ROM to flexion and extension. No swelling or TTP Elbows * Right Elbow: Full ROM. No swelling or TTP. No TTP of the medial epicondyle. No TTP of the lateral epicondyle * Left Elbow: Full ROM. No swelling or TTP. No TTP of the medial epicondyle. No TTP of the lateral epicondyle Shoulders * Right shoulder: Full ROM. No swelling noted. No TTP of the AC joint. No TTP of the subacromial bursa. No TTP of the posterior shoulder * Left shoulder: Full ROM. No swelling noted. No TTP of the AC joint. No TTP of the subacromial bursa. No TTP of the posterior shoulder Knees * Right knee: Full ROM. No swelling noted. No TTP of the knee joint line. TTP of pes anserine bursa * Left knee: Full ROM. No swelling noted. No TTP of the knee joint line. TTP of pes anserine bursa. Ankles * Right ankle: Good ankle dorsiflexion and plantar flexion. No swelling. No TTP of the ankle joint * Left ankle: Good ankle dorsiflexion and plantar flexion. No swelling. No TTP of the ankle joint Feet * Right foot: Negative squeeze test * Left foot: Negative squeeze test Tender points? * No tenderness to palpation of the bilateral trapezius, supraspinatus, anterior costochondral junctions, bilateral suboccipital muscle insertions Vital Signs: Last Vital Signs Pulse 86 01/14/25 15:55 BP 122/70 01/14/25 15:55 Pulse Ox 98 01/14/25 15:55 Oxygen Delivery Method Room Air 01/14/25 15:55 BMI result Body Mass Index 40.6 Office Procedures AMB Joint Injection/Aspiration Joint Injection/Aspiration Details: Procedure was explained to the patient and informed consent was obtained. ? Risks associated with the procedure were discussed with the patient including but not limited to bleeding, infection, drug reactions and reactions to the topical anesthetic. Patient made aware of signs to look out for infectious complications. The area of interest was identified and confirmed with patient. ?This was subsequently cleaned with chlorhexidine x 2. ? The area was then anesthetized using ethyl chloride spray. 40 mg Kenalog with 1 cc 1% lidocaine was injected without issue. ?Minimal to no bleeding. ?Patient tolerated procedure. Primary Site: right knee Injected: 40 mg of, Kenalog, with 1 mL of and 1% plain lidocaine Procedure: The patient tolerated the procedure well Coding 02827 - Large joint Procedure code (CPT) selection complete AMB Joint Injection/Aspiration Joint Injection/Aspiration Details: Procedure was explained to the patient and informed consent was obtained. ? Risks associated with the procedure were discussed with the patient including but not limited to bleeding, infection, drug reactions and reactions to the topical anesthetic. Patient made aware of signs to look out for infectious complications. The area of interest was identified and confirmed with patient. ?This was subsequently cleaned with chlorhexidine x 2. ? The area was then anesthetized using ethyl chloride spray. 40 mg Kenalog with 1 cc 1% lidocaine was injected without issue. ?Minimal to no bleeding. ?Patient tolerated procedure. Primary Site: left knee Prep: site was prepped using aseptic technique and ethochloride spray was applied Injected: 40 mg of, Kenalog, with 1 mL of and 1% plain lidocaine Procedure: The patient tolerated the procedure well Coding 58034 - Large joint Procedure code (CPT) selection complete Office Meds lidocaine (PF) 10 mg/mL (1 %) injection solution Performing Provider: Polina Hernandez MD Performing Location: [facility] Administered by: Polina Hernandez MD on 01/14/25 16:35 Dose Route Admin Location Dispensed Lot Number Expiration Date [employer] System [employer] 1 mL Infiltration right pes anserine bursa 2 mL [id number] 08/13/26 6 3323-492-04 [employer] Total Dispensed Waste 2 mL 50 % Kenalog 40 mg/mL suspension for injection Performing Provider: Polina Hernandez MD Performing Location: [facility] Administered by: Polina Hernandez MD on 01/14/25 16:35 Dose Route Admin Location Dispensed Lot Number Expiration Date [employer] System Engineer 40 mg intrabursal right pes anserine bursa 1 mL [id number] 09/13/26 7 2154-0257-1 [employer] Total Dispensed Waste 1 mL 0 % lidocaine (PF) 10 mg/mL (1 %) injection solution Performing Provider: Polina Hernandez MD Performing Location: [facility] Administered by: Polina Hernandez MD on 01/14/25 16:35 Dose Route Admin Location Dispensed Lot Number Expiration Date [employer] Log[employer] System Engineer 1 mL Infiltration left pes anserine bursa 2 mL [id number] 08/13/26 63 [id number] [employer] Total Dispensed Waste 2 mL 50 % Kenalog 40 mg/mL suspension for injection Performing Provider: Polina Hernandez MD Performing Location: [facility] Documented (not given) by: Polina Hernandez MD on 01/14/25 16:35 Dose Route Admin Location Dispensed Lot Number Expiration Date [facility] Logistics System Engineer 40 mg intrabursal mL Total Dispensed Waste n/a n/a Results Reviewed Results Reviewed: XR Bilateral Knees 03/10/2024 FINDINGS: RIGHT KNEE: Moderate-severe medial compartment arthritis, joint space loss, osteophytes. Mild-moderate lateral and patellofemoral arthritis. No visible acute fracture or dislocation. Small suprapatellar joint fluid. LEFT KNEE: Severe medial compartment arthritis, joint space loss, osteophytes. Mild-moderate lateral and patellofemoral arthritis. No acute fracture or dislocation. Small effusion. Assessment & Plan Assessment & Plan (1) Knee osteoarthritis: Code(s): M17.9 - Osteoarthritis of knee, unspecified Category: Medical Qualifiers: Osteoarthritis type: primary Laterality: bilateral Qualified Code(s): M17.0 - Bilateral primary osteoarthritis of knee Plan: #Bilateral knee OA Patient is a 54-year-old female with bilateral knee osteoarthritis here today for follow up. Completed Euflexxa series April 2024 and still has good efficacy from it. We will repeat Euflexxa series in April 2025 Plan - Repeat Euflexxa series in April 2025 - Celebrex to 200 mg twice a day - RTC April 2025 (2) Pes anserine bursitis: Code(s): M70.50 - Other bursitis of knee, unspecified knee Qualifiers: Laterality: bilateral Qualified Code(s): M70.51 - Other bursitis of knee, right knee; M70.52 - Other bursitis of knee, left knee Plan: #Bilateral pes anserine burisitis S/p bilateral steroid injection Plan - Exercises given Plan I spent 20 minutes reviewing the record and labs, seeing the patient, discussing the treatment plan and documenting in the medical record ? Orders: Orders AMB Joint Injection/Aspiration Today M70.51 - Other bursitis of knee, right knee, M70.52 - Other bursitis of knee, left knee AMB Joint Injection/Aspiration Today M70.50 - Other bursitis of knee, unspecified knee Medications: New Kenalog (triamcinolone acetonide) 40 mg intrabursal ONCE 1 mL 0RF NS M70.50 - Other bursitis of knee, unspecified knee Coding Level of Care Code Est Pt Level 3 (68988) Diagnoses Primary osteoarthritis of both knees M17.0 Osteoarthritis type: primary Laterality: bilateral Pes anserinus bursitis of both knees M70.51; M70.52 Laterality: bilateral CPT Codes Coding - 98334 Large joint: 16512 - Large joint ([id number]) Coding - 96572 Large joint: 81257 - Large joint ([id number])
[2025-01-14 15:55] VITALS: BP 122/70; PULSE 86; O2SAT 98; BMI 40.6
== END 2025-01-14 17:06 | disposition home or self-care (01) ==
LOC: HO.RHES 15:49
PROVIDERS: PCP Internal Medicine; Visit Provider Student in an Organized Health Care Education/Training Program
DX: M17.0 Bilateral primary osteoarthritis of knee (principal); M70.51 Other bursitis of knee, right knee; M70.52 Other bursitis of knee, left knee
CPT/HCPCS: 20610; 99213

== ENCOUNTER → 2025-01-14 15:49 | Outpatient (BNVA) | payer OTHER, SELFPAY | PROVIDERS: PCP Internal Medicine; Visit Provider Student in an Organized Health Care Education/Training Program | DX: M17.0 Bilateral primary osteoarthritis of knee (principal); M70.51 Other bursitis of knee, right knee; M70.52 Other bursitis of knee, left knee | CPT/HCPCS: 20610; J2003; J3301 ==

== ENCOUNTER 2025-02-12 07:38 | Outpatient (REF) | payer OTHER, SELFPAY ==
--- NOTE | ~2025-02-12 | MM_ITS ---
EXAMINATION: MM SCREENING DIGITAL BREAST TOMOSYNTHESIS, BILATERAL CLINICAL INFORMATION: Screening. Asymptomatic. COMPARISON: Comparison made to multiple prior, most recent April 22, 2023, and most remote January 01, 2012. TECHNIQUE: Digital breast tomosynthesis is performed in mediolateral oblique and craniocaudal views along with computer-aided detection (CAD). Synthesized 2D images are generated from the tomosynthesis. FINDINGS: BREAST COMPOSITION: There are scattered areas of fibroglandular density. BILATERAL BREASTS: No significant masses, suspicious calcifications or other abnormalities are seen in either breast. MM/MM tomosynthesis screening BI IMPRESSION: BILATERAL BREASTS: Negative, no mammographic evidence of malignancy. Normal interval follow-up is recommended in 12 months. ASSESSMENT: BI-RADS: Category 1: Negative RECOMMENDATION: Routine annual mammography screening. FOLLOW-UP: 1 year F/U This examination should not preclude the clinical evaluation of a suspicious palpable abnormality. This patient's information was entered into a reminder system with a target due date for their next mammogram. Electronically signed by: Navneet Alcala MD 02/13/2025 11:29 PM EDT
== END 2025-02-12 07:39 | disposition home or self-care (01) ==
LOC: HO.MAMMO 07:38
PROVIDERS: PCP Internal Medicine; Visit Provider Internal Medicine
DX: Z12.31 Encounter for screening mammogram for malignant neoplasm of breast (principal)
CPT/HCPCS: 77063; 77067

== ENCOUNTER → 2025-02-12 07:45 | Outpatient (BNV) | payer OTHER, SELFPAY | PROVIDERS: PCP Internal Medicine; Visit Provider Radiology Body Imaging | DX: Z12.31 Encounter for screening mammogram for malignant neoplasm of breast (principal) | CPT/HCPCS: 77063; 77067 ==

== ENCOUNTER 2025-03-30 07:21 | Outpatient (AMB) | payer OTHER, SELFPAY ==
--- NOTE | 2025-03-30 07:28 | MHC.PC.OV ---
Vital Signs 03/30/25 07:29 Height 5 ft 9 in Weight 264 lb BMI 39.0 BP 136/68 Blood Pressure Location Lt brachial Position Sitting Respiration 18 Pulse 91 Pulse Source Pulse Oximeter Temp 97.9 F Temp Source Temporal Artery Scan Pulse Oximetry (%) 99 Oxygen Delivery Method Room Air Intake Visit Reasons: Annual Exam Accountant Cost Required: No Accompanied by: Self / Same As Patient Allergies erythromycin base (Erythromycin Base) Allergy (Mild, Verified 03/30/25 07:41) Rash Medication List - Last Reconciled 03/30/25 by Rowena Killian MD celecoxib (Celebrex) 200 mg PO BID 90 days levothyroxine 175 mcg PO DAILY 90 days Tobacco use date assessed: 03/30/25 Dental Screening Dental Screen Date: 03/30/25 Did you have a dental visit in the last 12 months?: Yes Did you have a dental problem in the last 6 months where you did not have access to dental care?: No Was dental information given to patient?: Patient has dentist HPI HPI Comments History of Present Illness Details The patient is a 54 year old female presenting for a physical exam. She has a history of hypothyroidism, which is currently managed with levothyroxine 175 mcg. Her thyroid condition previously fluctuated, particularly during her childbearing years, but is now stable and she denies any associated symptoms such as discomfort or a lump in her throat. She was previously followed by an garbage pick up worker but has been advised that her primary care provider can manage her thyroid condition. She has a history of thyroid nodules, with a prior ultrasound in 2021 showing a small, solitary left thyroid nodule described as mixed cystic and solid. A follow-up ultrasound showed no significant change, and because the nodule is very small, no fine needle aspiration or further imaging was recommended. Past medical history includes elevated cholesterol on prior blood work. Her only reported surgery is a section. She has a known allergy to erythromycin, which causes a rash. Family history is significant for a father who from esophageal cancer. Her mother is alive at age 81. The patient reports trouble sleeping and feeling tired, which she attributes to arthritis rather than depression. She denies being depressed. - Received influenza vaccine this year. - Mammogram is complete. - Cologuard test was negative in 2023; next screening is due in 2026. - Pap smear was completed last year and was HPV negative. - Tetanus vaccine is up to date, received less than 10 years ago. - Recommended to receive the shingles vaccine as she is over 50 years old. - Plan to check TSH, free T4, cholesterol, and glucose with fasting labs. [facility] Medical History (Updated 03/30/25 @ 07:57 by Rowena Killian MD) Morbid obesity with BMI of 40.0-44.9, adult Knee osteoarthritis Minerva's thyroiditis Surgical History History of Family History Mother No problems noted. 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 1. Little interest or pleasure in doing things: not at all 2. Feeling down, depressed, or hopeless: not at all 3. Trouble falling or staying asleep, or sleeping too much: several days 4. Feeling tired or having little energy: several days 5. Poor appetite or overeating: not at all 6. Feeling bad about yourself - or that you are a failure or have let yourself or your family down: not at all 7. Trouble concentrating on things, such as reading the newspaper or watching television: not at all 8. Moving or speaking so slowly that other people could have noticed. Or the opposite - being so fidgety or restless that you have been moving around a lot more than usual: not at all 9. Thoughts that you would be better off or of hurting yourself in some way: not at all Total score: 2 Depression Screening Interpretation: Negative Depression Screening Done: Yes 47131 - PHQ-9 Billing: Yes Source: Developed by Drs. Jesus Dalton, Yahaira Shane, Nathan Harrison and colleagues, with an educational ne from [employer]. Thrive Questionnaire Date Thrive assessed: 11/24/24 I am a: Patient What is your living situation today?: I have a steady place to live Within the past 12 months, did the food you bought not last and you didn't have the money to get more?: Never true Within the past 12 months, did you worry whether your food would run out before you got money to buy more?: Never true Do you have trouble paying for medicines?: No Do you have trouble getting transportation to medical appointments?: No Do you have trouble paying your heating and electricity bill?: No Do you have trouble taking care of your child, family member or friend?: No Do you have trouble with day-to-day activities such as bathing, preparing meals, shopping, managing finances, etc.?: No Are you currently unemployed and looking for a job?: No Are you interested in more education?: No Please select the resources that you would like help with: None Currently or been in a relationship where the following occur: No concerns reported THRIVE Score: 0 AUDIT C Alcohol Use Questionnaire (AUDIT-C) 1. How often do you have a drink containing alcohol?: Never 3. How often do you have six or more drinks on one occasion?: Never Total Score: 0 Score Reviewed/Action Taken: No CARMEN-7 AMB Questionnaire CARMEN-7 Date CARMEN - 7 assessed: 04/21/24 Source: Developed by Drs. Jesus Dalton, Yahaira Shane, Nathan Harrison and colleagues, with an educational ne from [employer]. Review of Systems Const All systems reviewed & are unremarkable except as noted in HPI and below Card Denies chest pain at rest, Denies chest pain with activity, Denies edema, Denies irregular heart rhythm, Denies claudication, Denies dyspnea, Denies dyspnea on exertion, Denies orthopnea, Denies paroxysmal nocturnal dyspnea and Denies slow heart rate Resp Denies cough, Denies dyspnea and Denies dyspnea on exertion GI Denies abdominal pain, Denies change in bowel habits, Denies excessive flatus, Denies nausea and Denies vomiting Denies urinary incontinence, Denies urinary hesitancy and Denies urinary urgency Physical exam (Primary Care) Vital Signs: Last Vital Signs Temp 97.9 F 03/30/25 07:29 Pulse 91 03/30/25 07:29 Resp 18 03/30/25 07:29 BP 136/68 03/30/25 07:29 Pulse Ox 99 03/30/25 07:29 Oxygen Delivery Method Room Air 03/30/25 07:29 BMI result Body Mass Index 39.0 BMI Assessment/Plan discussion: High BMI High, discussed plan: lifestyle, weight reduction, dietary and physical activity Tobacco/Smoking Status: Tobacco use Status Tobacco use date assessed 03/30/25 03/30/25 07:36 Patient Tobacco Use Status Never used Tobacco 03/30/25 07:36 e-Cigarette/Vaping Use Never Used 03/30/25 07:36 PHQ-9: PHQ-9 Score PHQ-9: Total score 2 03/30/25 07:36 Depression Screening Interpretation: Negative Thrive Assessment: Date of Thrive Assessment Date Thrive assessed 11/24/24 03/30/25 07:36 Currently or been in a relationship where the following occur: No concerns reported [facility] Head: Yes normal to inspection, Yes normocephalic and Yes atraumatic Ears: external ears normal Eyes General: appearance normal, both eyes and all related structures Eyelids: Yes eyelids normal Conjunctivae: conjunctivae normal Neck Neck: Yes normal visual inspection and Yes supple Resp Effort & Inspection: normal respiratory effort Auscultation: clear to auscultation bilaterally Cardio Jugular venous distension: no JVD Rate: regular rate Rhythm: regular rhythm Heart sounds: S1 normal heart sound present and S2 normal heart sound present GI Inspection: Yes normal to inspection Palpation (GI): Soft to palpation and nontender Auscultation: normal bowel sounds Skin General skin exam: no rashes or lesions noted Neuro General: no focal motor deficits Extrem General: Yes full ROM Psych Appearance: grossly normal Coding Level of Care Code Est Pt Prev Care 40-64y(87139) Diagnoses Physical exam Z00.00 Additional Codes PHQ-9 - 79114 - PHQ-9 Billing: Yes ([id number]) Time Spent (min) 30 Assessment & Plan Assessment & Plan (1) Physical exam: Code(s): Z00.00 - Encounter for general adult medical examination without abnormal findings Category: Medical Plan Plan 1. Physical exam The patient presented for her annual physical exam. She is up to date on her influenza vaccine, mammogram, and tetanus vaccine. Her last Cologuard was negative in 2023, with the next due in 2026. Her Pap smear last year was HPV negative. The shingles vaccine was recommended as she is over 50, but the pneumonia vaccine was deemed unnecessary at this time. Fasting labs will be ordered to check cholesterol, glucose, and thyroid function (TSH and free T4). 2. Hypothyroidism The patient's hypothyroidism is managed by her primary care provider and she continues to take levothyroxine 175 mcg. Annual blood work to monitor TSH and free T4 levels will be performed. 3. Thyroid Nodule The patient has a history of a very small, solitary left thyroid nodule, which was stable on a follow-up ultrasound in 2021. Given its small size and stability, no FNA or further follow-up imaging is currently required. 4. Elevated Cholesterol Cholesterol was noted to be slightly elevated on previous labs. Fasting labs will be ordered to recheck and monitor the trend. Orders: Orders Thyroid Stimulating Hormone Today E06.3 - Autoimmune thyroiditis Lipid Panel Today E78.5 - Hyperlipidemia, unspecified Comprehensive [place]. Panel Fast Today Z00.00 - Encounter for general adult medical examination without abnormal findings Free T4 (Free Thyroxine) Today E06.3 - Autoimmune thyroiditis
[2025-03-30 07:29] VITALS: BP 136/68; PULSE 91; RESP 18; TEMP 36.6; O2SAT 99; BMI 39.0
== END 2025-03-30 08:06 | disposition home or self-care (01) ==
LOC: HO.HMCH 07:22
PROVIDERS: PCP Internal Medicine; Visit Provider Internal Medicine
DX: Z00.00 Encounter for general adult medical examination without abnormal findings (principal)

== ENCOUNTER → 2025-03-30 07:21 | Outpatient (BNVA) | payer OTHER, SELFPAY | PROVIDERS: PCP Internal Medicine; Visit Provider Internal Medicine | DX: Z00.00 Encounter for general adult medical examination without abnormal findings (principal); E03.9 Hypothyroidism, unspecified; Z79.890 Hormone replacement therapy; E04.1 Nontoxic single thyroid nodule | CPT/HCPCS: 96127 ==